=== PATIENT | male | born 1965 | race Hispanic/Latino ===

== ENCOUNTER 2021-03-15 08:56 | Outpatient (CLI) | payer OTHER, SELFPAY | END 2021-03-15 08:57 | disposition home or self-care (01) | LOC: ANHAUDIO 09:00 | PROVIDERS: Visit Provider Nurse Practitioner Family | DX: H90.3 Sensorineural hearing loss, bilateral (principal) | CPT/HCPCS: 92557; 92567 ==

== ENCOUNTER 2023-04-19 11:20 | Outpatient (CLI) | payer OTHER, SELFPAY ==
[2023-04-19 11:45] LABS: Basophils Absolute Auto 0.1 K/mm3 (0.0-0.1); Basophils Percent Auto 0.9 % (0.2-1.2); Eosinophils Percent Auto 0.4 % (0-4.4); Hematocrit 44.7 % (42.0-52.0); Hemoglobin 15.2 g/dL (14.0-18.0); Immature Granulocyte Absolute 0.06 K/mm3 (0.00-0.031); Immature Granulocyte Percent A 0.7 % (0-0.5); Immature Reticulocyte Fraction 7.3 % (3.0-15.9); Lymphocytes Absolute Auto 2.04 K/mm3 (0.9-3.2); Lymphocytes Percent Auto 22.8 % (18.3-44.2); Mean Corpuscular Hemoglobin 33.4 pg (26-34); Mean Corpuscular Volume 98.2 fl (80-100); Mean Platelet Volume 10.6 fl (7.4-10.4); Monocytes Absolute Auto 0.7 K/mm3 (0.1-0.6); Monocytes Percent Auto 7.4 % (2.6-8.5); Neutrophils Absolute Auto 6.1 K/mm3 (1.3-6.7); Neutrophils Percent Auto 67.8 % (45.5-73.1); Platelet Count Result 216 k/mm3 (150-375); Red Blood Count 4.55 M/mm3 (4.6-6.20); Red Cell Distribution Width 11.4 % (11.5-14.5); Reticulocyte Hemoglobin Conten 37.5 pg (28.2-35.7); Reticulocyte Percent 2.04 % (0.7-4.3); Reticulocytes Absolute 0.09 M/mm3 (0.02-0.1)
[2023-04-19 13:15] LABS: Alanine Aminotransferase 39 U/L (6-50); Albumin Level 4.4 g/dL (3.5-5.1); Alkaline Phosphatase 61 U/L (38-126); Anion Gap 7 mmol/L (8-16); Aspartate Amino Transferase 32 U/L (17-59); Bilirubin,Total 0.7 mg/dL (0.2-1.3); Blood Urea Nitrogen 15 mg/dL (9-20); Calcium 9.1 mg/dL (8.4-10.2); Carbon Dioxide 27 mmol/L (22-30); Chloride 104 mmol/L (98-107); Estimated Glomerular Filt Rate > 60; Glucose 96 mg/dL (65-110); Lactate Dehydrogenase 191 U/L (120-246); Potassium 4.7 mmol/L (3.4-5.0); Sodium 138 mmol/L (137-145)
[2023-04-19 14:21] LABS: Folic Acid 9.6 ng/mL (2.76->20)
[2023-04-19 16:27] LABS: Iron 179 ug/dL (49-181)
[2023-04-19 16:36] LABS: Percent Iron Saturation 61 % (20-50)
[2023-04-22 11:52] LABS: Methylmalonic Acid 99 nmol/L (87-318)
[2023-04-26 13:19] LABS: Soluble Transferrin Receptor 1.43 mg/L (0.76-1.76)
== END 2023-04-19 11:21 | disposition home or self-care (01) ==
LOC: ANHLAB 11:27
PROVIDERS: Nurse Practitioner Family; Visit Provider Internal Medicine Hematology & Oncology
DX: R71.8 Other abnormality of red blood cells (principal)
CPT/HCPCS: 36415; 80053; 82607; 82728; 82746; 83540; 83550; 83615; 83921; 84238; 84443; 85025; 85046

== ENCOUNTER 2023-11-15 08:03 | Outpatient (CLI) | payer OTHER, SELFPAY ==
[2023-11-15 08:24] LABS: Hematocrit 45.1 % (42.0-52.0); Hemoglobin 15.2 g/dL (14.0-18.0); Mean Corpuscular HGB Conc 33.7 g/dl (32-36); Mean Corpuscular Hemoglobin 33.6 pg (26-34); Mean Corpuscular Volume 99.8 fl (80-100); Platelet Count Result 209 k/mm3 (150-375); Red Blood Count 4.52 M/mm3 (4.6-6.20); Red Cell Distribution Width 11.4 % (11.5-14.5); White Blood Count 8.3 K/mm3 (4.5-10.0)
[2023-11-15 08:25] LABS: Basophils Absolute Auto 0.1 K/mm3 (0.0-0.1); Basophils Percent Auto 0.6 % (0.2-1.2); Eosinophils Percent Auto 0.5 % (0-4.4); Immature Granulocyte Absolute 0.06 K/mm3 (0.00-0.031); Immature Granulocyte Percent A 0.7 % (0-0.5); Lymphocytes Absolute Auto 1.97 K/mm3 (0.9-3.2); Lymphocytes Percent Auto 23.7 % (18.3-44.2); Mean Platelet Volume 10.4 fl (7.4-10.4); Monocytes Absolute Auto 0.6 K/mm3 (0.1-0.6); Monocytes Percent Auto 6.9 % (2.6-8.5); Neutrophils Absolute Auto 5.6 K/mm3 (1.3-6.7); Neutrophils Percent Auto 67.6 % (45.5-73.1)
[2023-11-15 09:15] LABS: Iron 95 ug/dL (49-181)
[2023-11-15 09:25] LABS: Percent Iron Saturation 32 % (20-50)
[2023-11-15 10:23] LABS: Folic Acid 17.7 ng/mL (2.76->20)
== END 2023-11-15 08:04 | disposition home or self-care (01) ==
LOC: ANHLAB 08:04
PROVIDERS: Nurse Practitioner Family; Visit Provider Internal Medicine Hematology & Oncology
DX: D51.9 Vitamin B12 deficiency anemia, unspecified (principal); E03.9 Hypothyroidism, unspecified
CPT/HCPCS: 36415; 82607; 82728; 82746; 83540; 83550; 84443; 85025

== ENCOUNTER 2024-11-21 08:16 | Outpatient (CLI) | payer OTHER, SELFPAY ==
--- OUTSIDE RECORDS SUMMARY | 2022-04-18 14:25 | XMS_ITS | Encounter Summary ---
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) Procedures Pulmonary Function Test -[facility]- [facility]; Spirometry, Oxygen Assessment Titration Melchor Bajwa MD [address] [place] [address] Phone: tel: fax: Referral ID Status Reason Start Date Expiration Date Visits Re quested Visits Authorized [id number] Closed 09/20/2021 10/20/2022 1 1 D INSTALLATION TECHNICIAN Reason for Visit * (Routine) - Closed Specialty Diagnoses / Procedures Referred By Contac t Referred To Contact Diagnoses 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) [...] on file Legal Sex Male 11:40 AM FIELD INSTALLATION TECHNICIAN Gender Identity Not on file Sexual Orientation Not on file documented as of this encounter Functional Status documented as of this encounter Plan of Treatment Not on file documented as of this encounter Procedures Procedure Name Priority Date/Time Associated Diagnosis Comments PULMONARY FUNCTION TEST (PFT) Routine 04/18/2022 1:51 PM FIELD INSTALLATION TECHNICIAN 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 FVC %PRE PRED 83 % [facility] FEV1 PRE 2.[address] [facility] FEV1 %PRE PRED 84 % [facility] FEV1/FVC PRE 80.9 % [facility] FIO2 % 21.00 % [facility] PaO2 68.[address] [facility] PaCO2 38.[address] [facility] pH 7.[address] [facility] A-aDO2 POC 34.[address] [facility] METHGB % 1.2 % [facility] COHb POC 1.5 % [facility] HCO3 25.8 mEq/L [facility] Anatomical Region Laterality Modality PFT 04/18/2022 1:28 PM FIELD INSTALLATION TECHNICIAN Narrative 04/25/2022 8:15 AM FIELD INSTALLATION TECHNICIAN Table formatting from the original result was not included. [facility] Division of Pulmonary & Critical Care Medicine [address] [place] [address]; [place] [address]; [place] [address]; [phone] Pulmonary Function Laboratory Pulmonary Stress Test Simple/Oxygen [...] Work [distance (m) x body wt (kg)]: 57527 kg.m (normal >60,000kg.m) Oxygen required to maintain [...] with the written final report. 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
--- OUTSIDE RECORDS SUMMARY | 2023-04-17 13:42 | XMS_ITS | Encounter Summary ---
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) Procedures Pulmonary Function Test -[facility]FT [facility]- [facility]; Spirometry, Oxygen Assessment Titration Melchor Bajwa MD [address] [place] [address] Phone: tel: fax: Referral ID Status Reason Start Date Expiration Date Visits Re quested Visits Authorized [id number] Closed 04/18/2022 05/18/2023 1 1 ISTRY PROFESSOR Reason for Visit * Procedure (Routine) - Closed Specialty Diagnoses / Procedures Referred By Contandrea t Referred To Contact Diagnoses 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) Procedures Pulmonary Function Test -[facility]- [facility]; Spirometry, Oxygen Assessment Titration Melchor Bajwa MD [address] [place] [address] Phone: tel: fax: Referral ID Status Reason Start Date Expiration Date Visits Re quested Visits Authorized [id number] Closed 04/18/2022 05/18/2023 1 1 Encounter Details Date Type Department Care Team (Latest Contact Info) Description 04/17/2023 12:42 PM DENTISTRY PROFESSOR Hospital Encounter [facility] Medicine PFT Lab 10 [facility] Office Building [address] [place] [address] 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 Compared [...] and %HbO2 is age dependent. However, the [facility] Pulmonary Function Laboratory defines hypoxemia as a PO2 <55 or a %HbO2 <89. Narrative 04/17/2023 6:10 PM DENTISTRY PROFESSOR Table formatting from the original result was not included. [facility] Division of Pulmonary & Critical Care Medicine [address] [place] [address]; [place] [address]; [place] [address]; [phone] Pulmonary Function Laboratory Pulmonary Stress Test Simple/Oxygen [...] Work [distance (m) x body wt (kg)]: 55345 kg.m (normal >60,000kg.m) Oxygen required to maintain [...] with no significant change of FEV1. Holden Pino M.D. By signing this report, the attending pulmonary physician certifies that he/she has personally reviewed and interpreted the graphic and numerical data associated with this pulmonary function study and has reviewed and /or edited a preliminary draft report and agrees with the written final report. PFT performed at:->[facility] Adult PFT Lab- [facility] Procedure:->Spirometry Procedure:->Oxygen Assessment Titration Pulmonary Function Test [...] (HCC) documented in this encounter Care Teams Slag Production Worker Relationship Specialty Start Date End Date Lida Mckeon MD [address] [place] [id number] PCP - General Internal Medicine 04/18/22 Fely Johnson, RN Registered Nurse Pulmonary Disease 04/18/22 documented as of this encounter
--- OUTSIDE RECORDS SUMMARY | 2024-11-21 08:22 | XMS_ITS | Encounter Summary ---
Author Organization [facility] Healthcare Address [address] [place] [address] Care Team Providers Care Health Club Manager Name Role Phone Oscar Buenrostro MD Primary Care Provider Lida Mckeon MD Primary Care Provide r Fely Johnson RN Unavailable [facility] Encounter Details Date Type Department Care Team (Late st Contact Info) Description 01/27/2021 Telephone [facility] [address] [place] [address] Carolee Reynolds RT Social History Tobacco Use Types Packs/Day Years Used Date Smoking Tobacco: Former Smokeless Tobacco: Never Sex and Gender Information Value Date Recorded Sex Assigned at Not on file Legal Sex Male 11:40 AM MANAGEMENT ANALYST Gender Identity Not on file Sexual Orientation Not on file documented as of this encounter Plan of Treatment Not on file documented as of this encounter Visit Diagnoses Not on filedocumented in this encounter Care Teams Health Club Manager Relationship Specialty Start Date End Date Oscar Buenrostro MD [address] [place] [address] PCP - General 05/09/16 04/17/22 Lida Mckeon MD [address] [facility] [address] [place] [address] PCP - General Internal Medicine 04/18/22 Fely Johnson, RN Registered Nurse Pulmonary Disease 04/18/22 documented as of this encounter
--- OUTSIDE RECORDS SUMMARY | 2024-11-21 08:22 | XMS_ITS | Clinical Summary ---
Author Organization [facility] Shivamarystephen Eduardo Address [address] [place] [address] Care Team Providers Care Core Finisher Name Role Phone Hany Mckeon MD Primary Care Provider Allergies No known active allergies Medications albuterol sulfate HFA 90 mcg/actuation aerosol inhaler Take 2 Puffs by inhalation. 3 Active budesonide-form oteroL (SYMBICORT) 160-4.5 mcg/actuation HFA Aerosol Inhaler Take 2 Puffs by inhalation 2 times daily. 3 Active escitalopram oxalate (LEXAPRO) 10 mg tablet Take 10 mg by mouth daily at bedtime. Active fluticasone propionate (FLONASE) 50 mcg/spray [place], Suspension nasal inhaler Administer 2 Sprays in each nostril daily. 3 Active levothyroxine 50 mcg tablet Take 50 mcg by mouth daily. 3 Active rosuvastatin (CRESTOR) 10 mg tablet Take 10 mg by mouth daily. Active multivitamin (DAILY-TAINA) tablet Take 1 Tablet by mouth daily. Active Active Problems Problem Noted Date Diagnosed Date Elevated MCV 04/19/2023 Encounters Date Type Department Care Team Description 11/20/2024 Orders Only [facility] Oncology and Hematology - [place] [address] [place] [address] Shaan Barnett MD Elevated MCV (Primary Dx) 09/16/2024 External Device Data STL ABSTRACTION Provider, Abstract from Last 3 Months Family History Medical History Relation Name Comments Diabetes Brother No Known Problems Child Diabetes Father No Known Problems Mother No Known Problems Sister Relation Name Status Comments Brother Alive Child Alive Father Mother Alive Sister Alive Social History Tobacco Use Types Packs/Day Years Used Date Smoking Tobacco: Former Cigarettes 0.5 23 0 03/26/1988 - 03/26/2011 Smokeless Tobacco: Never Tobacco Cessation:Counseling Given: Not Answered Alcohol Use Standard Drinks/Week Comments Yes 0 (1 standard drink = 0.6 oz pur e alcohol) Socially Sex and Gender Information Value Date Recorded Sex Assigned at Not on file Legal Sex Male 11:51 AM CORPORATION OFFICER Gender Identity Not on file Sexual Orientation Not on file Last Filed Vital Signs Vital Sign Reading Time Taken Comments Blood Pressure 122/83 11/16/2023 9:58 AM CDT Pulse 87 11/16/2023 9:58 AM CDT Temperature 36.6 C (97.9 F) 11/16/2023 9:58 AM CDT Respiratory Rate 15 11/16/2023 9:58 AM CDT Oxygen Saturation 96% 11/16/2023 9:58 AM CDT Inhaled Oxygen Concentration - - Weight 76.9 kg (169 lb 9.6 oz) 11/16/2023 9:58 A M CDT Height 167.6 cm (5' 6) 04/19/2023 10:30 AM CORPORATION OFFICER Body Mass Index 27.37 04/19/2023 10:30 AM CORPORATION OFFICER Plan of Treatment Upcoming Encounters Date Type Department Care Team (Late st Contact Info) Description 11/21/2024 8:45 AM CDT Office Visit [facility] Oncology and Hematology - [place] [address] [facility] [place] [facility] [address] [place] [address] Shaan Barnett MD [address] [facility] [address] [place] [address] Health Maintenance Due Date Last Done Comments DTAP/TDAP/TD VACCINES (1 - Tdap) 08/07/1986 HEPATITIS B VACCINES (1 of 3 - 19+ 3-dose series) 07/24 COLORECTAL SCREENING 08/07/2012 Colorectal Cancer Screening 08/07/2012 FIT-DNA Q 3 years 08/07/2012 FIT/FOBT Q 1 year 08/07/2012 Flex Sig/CT Colonography Q 5 years 08/07/2012 ZOSTER VACCINE (1 of 2) 08/07/2017 INFLUENZA VACCINE (#1) [address] [place] [address] MEDICAID Care Teams Core Finisher Relationship Specialty Start Date End Date Hany Mckeon MD PCP - General Internal Medicine 04/19/23
--- OUTSIDE RECORDS SUMMARY | 2024-11-21 08:22 | XMS_ITS | Encounter Summary ---
Author Organization [facility] [place] [facility] Address [address] [place] [address] Care Team Providers Care Account Services Representative Name Role Phone Hany Mckeon MD Primary Care Provider Encounter Details Date Type Department Care Team (Late Contact Info) Description 11/20/2024 Orders Only [facility] Oncology and Hematology [facility] [address] [place] [address] Shaan Barnett MD [facility] [address] [place] [phone] Elevated MCV (Primary Dx) Social History Tobacco Use Types Packs/Day Years Used Date Smoking Tobacco: Former Cigarettes 0.5 23 0 03/26/1988 - 03/26/2011 Smokeless Tobacco: Never Alcohol Use Standard Drinks/Week Comments Yes 0 (1 standard drink = 0.6 oz pur e alcohol) Socially Sex and Gender Information Value Date Recorded Sex Assigned at Not on file 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 Gender Identity Not on file Sexual Orientation Not on file documented as of this encounter Plan of Treatment Upcoming Encounters Date Type Department Care Team (Late Contact Info) Description 11/21/2024 8:45 AM CDT Office Visit [facility] Oncology and Hematology - [place] [address] [place] [address] Shaan Barnett MD [address] [place] [address] Scheduled Orders Name Type Priority Associated Diagnoses Orde r Schedule BASIC METABOLIC PANEL Lab Routine Elevated MCV Expected: 11/20/2024, Expires: 11/20/2025 CBC WITH DIFFERENTIAL Lab Routine Elevated MCV Expected: 11/20/2024, Expires: 11/20/2025 documented as of this encounter Visit Diagnoses Diagnosis Elevated MCV- Primary Other abnormality of red blood cells documented in this encounter Care Teams Account Services Representative Relationship Specialty Start Date End Date Hany Mckeon MD PCP - General Internal Medicine 04/19/23 documented as of this encounter
--- OUTSIDE RECORDS SUMMARY | 2024-11-21 08:22 | XMS_ITS | Clinical Summary ---
Author Organization [facility] Address [address] [facility] [place] [address] Care Team Providers Care Cafe Attendant Name Role Phone Hany Mckeon MD Primary Care Provider Allergies No known active allergies Medications acetaminophen Extra Strength (TYLENOL) 500 MG Tablet Take 500 mg by mouth every 8 hours. 5 Active Symbicort 160-4.5 MCG/ACT Aerosol INHALE 2 PUFFS BY MOUTH TWICE DAILY. RINSE MOUTH WITH WATER AFTER USE. DO NOT SWALLOW 5 Active rosuvastatin (CRESTOR) 10 MG Tablet Take 10 mg by mouth daily. 5 Active levothyroxine (SYNTHROID) 50 MCG Tablet Take 50 mcg by mouth daily. 5 Active Lancets (OneTouch Delica Plus [id number]) Misc test twice daily 5 Active ibuprofen (MOTRIN) 800 MG Tablet Take 800 mg by mouth every 8 hours as needed for Mild or more severe pain. 5 Active OneTouch Ultra Strip use to test twice daily 5 Active famotidine (PEPCID) 20 MG Tablet Take 20 mg by mouth. 5 Active escitalopram (LEXAPRO) 10 MG Tablet 10 mg. 5 Active albuterol 108 (90 Base) MCG/ACT Aerosol Solution INHALE 2 PUFFS BY MOUTH EVERY 6 HOURS NEEDED FOR WHEEZING OR SHORTNESS OF BREATH 5 Active chlorhexidine (PERIDEX) 0.12 % Solution RINSE AND SPIT 15 ML BY MOUTH FOR 30 SECONDS EVERY 12 HOURS Active cefdinir (OMNICEF) 300 MG Capsule Take 300 mg by mouth 2 times daily. Active cetirizine (ZyrTEC) 10 MG Tablet Take 10 mg by mouth daily. Active naproxen (NAPROSYN) 500 MG Tablet Take 500 mg by mouth 2 times daily (with meals). Active meloxicam (MOBIC) 15 MG Tablet Take 15 mg by mouth daily. Active rOPINIRole (REQUIP) 0.5 MG Tablet Take 0.5 mg by mouth nightly. Active traZODone (DESYREL) 50 MG Tablet Take 50 mg by mouth nightly. Active HYDROcodone-enzo taminophen (NORCO) 7.5-325 MG Tablet Take 1 Tablet by mouth every 6 hours as needed. Active clarithromycin (BIAXIN) 500 MG Tablet Take 500 mg by mouth 2 times daily. Active ferrous sulfate (FeroSul) 325 (65 Fe) MG Tablet Take 325 mg by mouth daily. Active metoclopramide (REGLAN) 10 MG Tablet Take 10 mg by mouth 4 times daily. Active LORazepam (ATIVAN) 1 MG Tablet Take 1 mg by mouth every 6 hours as needed. Active itraconazole (SPORANOX) 100 MG Capsule Take 200 mg by mouth daily. Active hydrOXYzine (ATARAX) 25 MG Tablet Take 25 mg by mouth every 6 hours as needed. Active Omeprazole 20 MG Tablet Delayed Response Take by mouth. Activ e Active Problems Problem Noted Date Diagnosed Date Primary hypertension 07/18/2024 Hypothyroidism 06/12/2024 Hyperlipidemia 06/12/2024 Generalized anxiety disorder 06/12/2024 RAVEN (obstructive sleep apnea) 06/12/2024 Acute sinusitis 06/12/2024 04/06/2023 Coronary arteriosclerosis 06/12/20242022 Upper respiratory infection 06/12/2024 08/0 03/2022 Allergic rhinitis 06/12/2024 11/02/2022 COPD (chronic obstructive pulmonary disease) 11/02/2022 Infection of tooth 06/12/2024 03/21/2024 Tooth ache 06/12/2024 10/03/2022 GERD without esophagitis 06/12/2024 023 Granulomatous disorder of th e skin and subcutaneous tissue, unspecified 06/12/2024 01/15/2019 Foot callus 06/12/2024 Ankle pain, left 06/12/2024 06/10/2022 Porokeratosis 06/12/2024 06/05/2022 Headache 06/12/2024 05/13/2024 Dyspnea on exertion 06/12/2024 07/16/2018 Macrocytosis 06/12/2024 11/02/2022 Abnormal red blood cell count 06/12/2024 Hyperglycemia 06/12/2024 12/13/2021 Peroneal tendinitis 06/12/2024 07/10/2022 Pterygium eye, bilateral 06/12/2024 023 Pain in joint of right shoulder 06/12/2024 05/08/2023 Elevated liver enzymes 06/12/2024 Social History Tobacco Use Types Packs/Day Years Used Date Smoking Tobacco: Never Assessed Sex and Gender Information Value Date Recorded Sex Assigned at Not on file Legal Sex Male 4:41 PM CDT Gender Identity Not on file Sexual Orientation Not on file Last Filed Vital Signs Vital Sign Reading Time Taken Comments Blood Pressure 124/90 07/18/2024 11:02 AM CDT Pulse 98 07/18/2024 11:02 AM CDT Temperature 36.6 C (97.8 F) 07/18/2024 11:02 AM CDT Respiratory Rate - - Oxygen Saturation 98% 07/18/2024 11:02 AM CDT Inhaled Oxygen Concentration - - Weight 77.6 kg (171 lb) 07/18/2024 11:02 AM CDT Height 177.8 cm (5' 10) 07/18/2024 11:02 AM CDT Body Mass Index 24.54 07/18/2024 11:02 AM CDT Plan of Treatment Upcoming Encounters Date Type Department Care Team (Late st Contact Info) Description 07/14/2025 8:30 AM CDT Office Visit [facility] - Cardiology - Greg [address] [place] [phone] Cari Cole APRN, THERAPY TECHNICIAN [address] [place] [phone] Health Maintenance Due Date Last Done Comments Hepatitis C Virus (HCV) Screening 1965 TdaP Immunization 1965 Hepatitis B Immunization (1 of 3 - 19+ 3-dose series) 08/07/1986 Pneumococcal Immunization (50+ years) (1 of 2 - PCV) 08/07/1986 Cologuard 08/07/2012 Colonoscopy 08/07/2012 Colorectal Cancer Screening 08/07/2012 Immunochemical Fecal Occult Blood 08/07/2012 Zoster Immunization (1 of 2) 08/07/2017 PSA Discussion 08/07/2022 Influenza Immunization (#1) 2024 11/0 06/2023, 01/08/2023, 01/10/2022, Additional history exists Respiratory Syncytial Virus (RSV) Immunization (Adult) (1 - 1-dose 75+ series) 08/07/2042 SARS-COV-2 Immunization Completed 01/28/20 24, 07/27/2020, 06/29/2020 Human Papillomavirus (HPV) Immunization Aged Out No longer eligible based on patient's age to complete this topic Meningococcal Immunization (ACWY) Aged Out No longer eligible based on patient's age to complete this topic Rotavirus Immunization Aged Out No lo nger eligible based on patient's age to complete this topic Insurance MEDICAID [employer] Care Teams Cafe Attendant Relationship Specialty Start Date End Date Hany Mckeon MD [address] [place] [address] PCP - General Internal Medicine 06/25/24
--- OUTSIDE RECORDS SUMMARY | 2024-11-21 08:22 | XMS_ITS ---
Author Organization [facility] Address [address] [place] [address] Care Team Providers Care Major Gifts Director Name Role Phone Hany Mckeon MD Primary Care Provider [place] Chronic Condition Monitoring Status:Enrolled (Active) Start date:09/12/2024 Enrollment date:09/12/2024 Related social drivers of health:Intimate Partner Violence, Social Connections, Alcohol Use, Tobacco Use, Financial Resource Strain,Depression, Stress, Physical Activity, Food Insecurity, Transportation Needs, Housing Stability, Utilities Continued Care and Services Coordination
--- OUTSIDE RECORDS SUMMARY | 2024-11-21 08:22 | XMS_ITS | Encounter Summary ---
Author Organization [facility] Address [address] [place] [address] Phone Care Team Providers Care Protective Signal Superintendent Name Role Phone Oscar Buenrostro MD Primary Care Provider Lida Mckeon MD Primary Care Provide r Fely Johnson RN Unavailable Unavailabl e Encounter Details Date Type Department Care Team (Latest Contact Info) Description 05/02/2019 Orders Only [facility] Scanning, Provider Social History Tobacco Use Types Packs/Day Years Used Date Smoking Tobacco: Never Assessed Sex and Gender Information Value Date Recorded Sex Assigned at Not on file 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 Gender Identity Not on file Sexual Orientation Not on file documented as of this encounter Plan of Treatment Not on file documented as of this encounter Procedures Procedure Name Priority Date/Time Associated Diagnosis Comments PULMONARY - RESULT SCAN 05/02/2019 documented in this encounter Results * PULMONARY - RESULT SCAN (05/02/2019) Anatomical Region Laterality Modality Other us Provider Scanning Final Result documented in this encounter Visit Diagnoses Not on filedocumented in this encounter Care Teams Protective Signal Superintendent Relationship Specialty Start Date End Date Oscar Buenrostro MD [address] [place] [address] PCP - General 05/09/16 04/17/22 Lida Mckeon MD [address] [place] [address] PCP - General Internal Medicine 04/18/22 Fely Johnson, RN Registered Nurse Pulmonary Disease 04/18/22 documented as of this encounter
--- OUTSIDE RECORDS SUMMARY | 2024-11-21 08:22 | XMS_ITS | Clinical Summary ---
Author Organization [facility] Address [address] [place] [address] Care Team Providers Care Banquet Coordinator Name Role Phone Lida Mckeon MD Primary Care Provide r Fely Johnson RN Unavailable Unavailabl e Allergies Active Allergy Reactions Criticality Noted Date Comments Hydromorphone Other (See comments) Low Reaction: OTHER, Reaction: Other Medications ALPRAZolam (XANAX) 0.5 mg tablet as needed Active rosuvastatin (CRESTOR) 10 mg tablet rosuvastatin 10 mg tablet Active OneTouch Ultra Test strip USE TO TEST BLOOD SUGAR ONCE DAILY 2 Active OneTouch Ultra2 Meter misc USE TO CHECK BLOOD SUGAR ONCE DAILY 2 Active OneTouch Delica Plus Lancet 33 gauge misc USE TO TEST BLOOD SUGAR ONCE DAILY 2 Active fluticasone propionate (FLONASE) 50 mcg/actuation nasal spray Administer 2 sprays into each nostril daily 16 g 5 3 Active FeroSuL 325 mg (65 mg iron) tablet Take 1 tablet (325 mg total) by mouth daily 2 Active omeprazole (PriLOSEC) 20 mg capsule Take by mouth daily before breakfast 2 Active azelastine (ASTELIN) 137 mcg (0.1 %) nasal spray Administer 1 spray into each nostril 2 (two) times a day Use in each nostril as directed 30 mL 5 3 Active Additional Information Patient not taking.Reported on 04/23/2024 escitalopram (LEXAPRO) 10 mg tablet Take 1 tablet (10 mg total) by mouth nightly at bedtime Active ascorbic acid with asad hips 500 mg tablet Take 1 tablet/chew tab (500 mg total) by mouth daily 4 Active levothyroxine (SYNTHROID) 50 mcg tablet Take 1 tablet (50 mcg total) by mouth daily 3 Active itraconazole (SPORANOX) 100 mg capsule itraconazole 100 mg capsule Take 2 capsules twice a day by oral route as directed for 14 days. Active albuterol HFA (ProAir HFA) 90 mcg/actuation inhaler Inhale 2 puffs every 6 (six) hours as needed for wheezing or shortness of breath 8.5 g 5 4 Active multivitamin tablet Take 1 tablet by mouth daily Active ibuprofen (ADVIL,MOTRIN) 800 mg tablet Take 1 tablet (800 mg total) by mouth every 12 (twelve) hours for 10 days 5 Active budesonide-form oteroL (SYMBICORT) 160-4.5 mcg/actuation inhaler Inhale 2 puffs 2 (two) times a day Rinse mouth with water after use. Do not swallow. 1 each 5 5 Active famotidine (PEPCID) 20 mg tablet Take 1 tablet (20 mg total) by mouth 2 (two) times a day for 30 days, THEN 1 tablet (20 mg total) daily. 90 tablet 5 5 Active Active Problems Problem Noted Date Diagnosed Date Dyspnea on exertion 10/16/2022 Granulomatous disease Respiratory bronchiolitis as sociated interstitial lung disease Surgical History Surgery Date Site/Laterality Comments ABSCESS CATHETER INJECTION 05/01/2016 N/A ABSCESS CATHETER INJECTION 04/17/2016 N/A ABSCESS TUBE EXCHANGE 04/17/2016 N/A CT GUIDED DRAINAGE PERITONEA L OR RETROPERITONEAL FLUID COLLECTION 03/28/2016 N/A Family History Medical History Relation Name Comments Diabetes Father Relation Name Status Comments Father Mother Alive Social History Tobacco Use Types Packs/Day Years Used Date Smoking Tobacco: Former Smokeless Tobacco: Never Tobacco Cessation:Counseling Given: Not Answered AUDIT-C Answer Date Recorded Frequency of Alcohol Consumption Not on file 04/23/2024 Q2: How many drinks containi ng alcohol do you have on a typical day when you are drinking? 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 Gender Identity Not on file Sexual Orientation Not on file Obstetrics History Last Filed Vital Signs Vital Sign Reading Time Taken Comments Blood Pressure 107/69 04/23/2024 7:42 AM ASBESTOS HANDLER Pulse 73 04/23/2024 7:42 AM ASBESTOS HANDLER Temperature 36.7 C (98.1 F) 04/23/2024 7:42 AM ASBESTOS HANDLER Respiratory Rate 20 04/17/2023 1:11 PM ASBESTOS HANDLER Oxygen Saturation 99% 04/23/2024 7:42 AM ASBESTOS HANDLER Inhaled Oxygen Concentration - - Weight 77.6 kg (171 lb) 04/23/2024 7:42 AM ASBESTOS HANDLER Height 170.9 cm (5' 7.3) 04/23/2024 7:42 AM ASBESTOS HANDLER Body Mass Index 26.54 04/23/2024 7:42 AM ASBESTOS HANDLER Plan of Treatment Health Maintenance Due Date Last Done Comments Depression Screening 1965 Hepatitis C Screening 1965 Prostate Cancer Screening-PSA 1965 DTaP/Tdap/Td Vaccine (1 - Tdap) 08/07/1978 Hepatitis B Screening 08/07/1985 Regular Well Visit/Exam 18-64 08/07/1985 Pneumococcal vaccine <65 (1 of 2 - PCV) 08/07/1986 Zoster Vaccine (1 of 2) 08/07/2017 Influenza Vaccine (#1) 2024 01/05/2020, 2015 Colon Cancer Screening-Colonoscopy 05/09/20262016 Colon Cancer Screening-CT Colonography Discontinued Colon Cancer Screening-DNA Stool Discontinued 05/09/19 17 Colon Cancer Screening-FIT Discontinued 05/09/2016 Colon Cancer Screening-Sigmoidoscopy Discontinued 04/26 Procedures Procedure Name Priority Date/Time Associated Diagnosis Comments COLONOSCOPY REPORT 05/09/2016 from Last 3 Months or Most Recently Relevant to Health Maintenance Results * COLONOSCOPY REPORT (05/09/2016) Anatomical Region Laterality Modality Other Narrative 05/09/2016 Ordered by an unspecified provider. us Historical Provider GI PROCEDURE ORDERABLES F inal Result from Last 3 Months or Most Recently Relevant to Health Maintenance Insurance [facility]PPO Address: [address] [address] [place] [address] [facility] Care Teams Banquet Coordinator Relationship Specialty Start Date End Date Lida Mckeon MD [address] [address] PCP - General Internal Medicine 04/18/22 Fely Johnson, RN Registered Nurse Pulmonary Disease 04/18/22
[2024-11-21 08:27] LABS: Hematocrit 45.5 % (42.0-52.0); Hemoglobin 15.6 g/dL (14.0-18.0); Immature Granulocyte Percent A 0.5 % (0-0.5); Lymphocytes Absolute Auto 1.83 K/mm3 (0.9-3.2); Mean Corpuscular HGB Conc 34.3 g/dl (32-36); Mean Corpuscular Hemoglobin 33.8 pg (26-34); Mean Corpuscular Volume 98.5 fl (80-100); Nucleated Red Blood Cells Absolute Auto 0.000 K/mm3 (0.0-0.012); Nucleated Red Blood Cells Perc 0.0 % (0.0-0.2); Platelet Count Result 198 k/mm3 (150-375); Red Blood Count 4.62 M/mm3 (4.6-6.20); White Blood Count 8.5 K/mm3 (4.5-10.0)
[2024-11-21 08:30] LABS: Blood Urea Nitrogen 15 mg/dL (8-26); Carbon Dioxide 27 mmol/L (22-30); Chloride 103 mmol/L (98-109); Estimated Glomerular Filt Rate > 60; Glucose 119 mg/dL (70-105); Ionized Calcium (POC) 1.19 mmol/L (1.11-1.31); Potassium 4.2 mmol/L (3.5-4.9); Sodium 139 mmol/L (138-146)
== END 2024-11-21 08:17 | disposition home or self-care (01) ==
LOC: ANHLAB 08:17
PROVIDERS: PCP Internal Medicine; Visit Provider Internal Medicine Hematology & Oncology
DX: R71.8 Other abnormality of red blood cells (principal)
CPT/HCPCS: 36415; 80047; 85025

== ENCOUNTER 2025-03-23 08:59 | Outpatient (CLI) | payer MEDICARE, MEDICAID, SELFPAY ==
--- OUTSIDE RECORDS SUMMARY | 2022-04-18 13:25 | XMS_ITS | Encounter Summary ---
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) Procedures Pulmonary Function Test -[facility]- [facility]; Spirometry, Oxygen Assessment Titration Melchor Bajwa MD [address] [place] [address] Phone: tel: fax: Referral ID Status Reason Start Date Expiration Date Visits Re quested Visits Authorized [id number] Closed 09/20/2021 10/20/2022 1 1 L CRAFT OPERATOR Reason for Visit * (Routine) - Closed Specialty Diagnoses / Procedures Referred By Contac t Referred To Contact Diagnoses 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) Procedures Pulmonary Function Test -[facility]- [facility]; Spirometry, Oxygen Assessment Titration Melchor Bajwa MD [address] [place] [address] Phone: tel: fax: Referral ID Status Reason Start Date Expiration Date Visits Re quested Visits Authorized [id number] Closed 09/20/2021 10/20/2022 1 1 Encounter Details Date Type Department Care Team (Latest Contact Info) Description 04/18/2022 1:25 PM SMALL CRAFT OPERATOR Hospital Encounter [facility] Medicine PFT Lab 10 [facility] Medical Office Building [address] [place] [address] 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) documented in this encounter Results * Pulmonary Function Test - (04/18/2022 1:51 PM SMALL CRAFT OPERATOR) FVC PRE 3.41 L [facility] FVC %PRE PRED 83 % [facility] FEV1 PRE 2.76 L [facility] FEV1 %PRE PRED 84 % [facility] FEV1/FVC PRE 80.9 % [facility] FIO2 % 21.00 % [facility] PaO2 68.0 mmHg [facility] PaCO2 38.0 mmHg [facility] pH 7.44 [facility] A-aDO2 POC 34.0 mmHg [facility] METHGB % 1.2 % [facility] COHb POC 1.5 % [facility] HCO3 25.8 mEq/L [facility] Anatomical Region Laterality Modality PFT 04/18/2022 1:28 PM SMALL CRAFT OPERATOR Narrative 04/25/2022 8:15 AM SMALL CRAFT OPERATOR Table formatting from the original result was not included. [facility] Division of Pulmonary & Critical Care Medicine [address] [place] [address]; [place] [address]; [place] [address]; [phone] Pulmonary Function Laboratory Pulmonary Stress Test Simple/Oxygen Assessment Patient: Vishal Curry Date: No visit date found. : 1965 Ht:67.5 IN Wt: 183 LBS Time (min) Distance (ft)/ Villaseñor O2 L/M SpO2 HR Alethea* BP FEV1 % Pred Rest: RA 98 83 3 117/80 2.76 84 % Walk/Bike: 1 RA 98 103 3 2 RA 99 101 3/4 3 RA 99 102 4 4 RA 97 107 4 5 RA 98 104 4 6 min 0 sec RA 99 102 5 Recovery: 1 RA 97 90 3 118/87 2.83 86% 3 RA 98 84 2 *Alethea rate of perceived exertion (1-10 dyspnea scale) Eleazar, CHEST 2003; 123:1408 Walk Test Summary: Six Minute Walk Distance: 1370 ft Six-minute Walk Work [distance (m) x body wt (kg)]: 94904 kg.m (normal >60,000kg.m) Oxygen required to maintain SpO2 greater than 90% during six minutes of walkin L/M Comments: O2A Interpretation: Breathing room air, SpO2 is normal at rest and during exercise sufficient to increase pulse from 83 to 102 b/min, SpO2 is stable. On this basis, SpO2 is adequate at rest breathing room air and while walking breathing room air. This level of exercise is associated with no significant change of FEV1. Cassie Villareal M.D. By signing this report, the attending pulmonary physician certifies that he/she has personally reviewed and interpreted the graphic and numerical data associated with this pulmonary function study and has reviewed and /or edited a preliminary draft report and agrees with the written final report. 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
--- OUTSIDE RECORDS SUMMARY | 2023-04-17 12:42 | XMS_ITS | Encounter Summary ---
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) Procedures Pulmonary Function Test -[facility]FT [facility]- [facility]; Spirometry, Oxygen Assessment Titration Melchor Bajwa MD [address] [place] [address] Phone: tel: fax: Referral ID Status Reason Start Date Expiration Date Visits Re quested Visits Authorized [id number] Closed 04/18/2022 05/18/2023 1 1 ATRY PROFESSOR Reason for Visit * Procedure (Routine) - Closed Specialty Diagnoses / Procedures Referred By Contandrea t Referred To Contact Diagnoses 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) Procedures Pulmonary Function Test -[facility]FT [facility]- [facility]; Spirometry, Oxygen Assessment Titration Melchor Bawja MD [address] [place] [address] Phone: tel: fax: Referral ID Status Reason Start Date Expiration Date Visits Re quested Visits Authorized [id number] Closed 04/18/2022 05/18/2023 1 1 Encounter Details Date Type Department Care Team (Latest Contact Info) Description 04/17/2023 12:42 PM PODIATRY PROFESSOR Hospital Encounter [facility] Medicine PFT Lab 10 [facility] Office Building [address] [place] [address] 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) [...] on file Legal Sex Male 11:40 AM PODIATRY PROFESSOR Gender Identity Not on file Sexual Orientation Not on file documented as of this encounter Plan of Treatment Not on file documented as of this encounter Procedures Procedure Name Priority Date/Time Associated Diagnosis Comments PULMONARY FUNCTION TEST (PFT) Routine 04/17/2023 1:11 PM PODIATRY PROFESSOR 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 Compared with study dated 10/16/32 , there has been no significant interval change. The attending pulmonary physician certifies a physician presence in the [facility] during the administration of aerosolized bronchodilator. The attending pulmonary physician certifies that he/she has reviewed and interpreted the graphic and numerical data of this pulmonary function study and agrees with the written final report. The lower limit of normal for PO2 and %HbO2 is age dependent. However, the [facility] Pulmonary Function Laboratory defines hypoxemia as a PO2 <55 or a %HbO2 <89. Narrative 04/17/2023 6:10 PM PODIATRY PROFESSOR Table formatting from the original result was not included. [facility] Division of Pulmonary & Critical Care Medicine [address] [place] [address]; [place] [address]; [place] [address]; [phone] Pulmonary Function Laboratory Pulmonary Stress Test Simple/Oxygen Assessment Patient: Vishal Curry Date: 04/17/2023 : 1965 Ht: 66 IN Wt: 175 LBS Time (min) Distance (ft)/ Villaseñor O2 L/M SpO2 HR Alethea* BP FEV1 % Pred Rest: RA 97 80 4 103/76 2.79 86 % Walk/Bike: 1 RA 100 92 4 2 RA 99 97 5 3 RA 100 97 5 4 RA 100 99 6 5 RA 100 99 7 6 min 0 sec RA 100 99 9 Recovery: 1 RA 100 88 9 112/82 2.69 83% 3 RA 100 87 7 *Alethea rate of perceived exertion (1-10 dyspnea scale) Eleazar, CHEST 2003; 123:1408 Walk Test Summary: Six Minute Walk Distance: 1530 ft Six-minute Walk Work [distance (m) x body wt (kg)]: 28938 kg.m (normal >60,000kg.m) Oxygen required to maintain SpO2 greater than 90% during six minutes of walkin L/M Comments: O2A- ATS STANDARDS- NO STOPS Interpretation: Breathing room air, SpO2 is normal at rest and during exercise sufficient to increase pulse from 80 to 99 b/min, SpO2 is stable. On this basis, SpO2 is adequate at rest breathing room air and while walking breathing room air. This level of exercise is associated with no significant change of FEV1. Holden Pion M.D. By signing this report, the attending pulmonary physician certifies that he/she has personally reviewed and interpreted the graphic and numerical data associated with this pulmonary function study and has reviewed and /or edited a preliminary draft report and agrees with the written final report. PFT performed at:->[facility] Adult PFT Lab- [facility] Procedure:->Spirometry Procedure:->Oxygen Assessment Titration Pulmonary Function Test Interpretation SPIROMETRY: The FEVI and FVC are normal. The FEVI to FVC ratio is normal. FLOW VOLUME LOOPS: The inspiratory loop is normal. 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
--- NOTE | ~2025-03-23 | MR_ITS ---
EXAMINATION: MR shoulder LT wo con DATE: 03/23/2025 09:39 INDICATION: Left shoulder pain TECHNIQUE: Magnetic resonance imaging (MRI) of the left shoulder was performed without intravenous contrast. Axial PD-weighted FS FSE and coronal oblique PD- weighted FS FSE sequences were obtained before study was terminated at patient request due to a panic attack. COMPARISON: None. FINDINGS: Study limited due to absence of sagittal PD-weighted and T1-weighted images as well as of the coronal T2-weighted images. Coracoacromial arch: The acromion undersurface is curved in morphology (type II). The coracoacromial ligament is normal. Mild to moderate acromioclavicular osteoarthritis. Rotator cuff: Moderate supraspinatus tendinopathy and mild tendinopathy of the anterior infraspinatus tendon without discrete tear. The teres minor tendon is normal. Moderate supraspinatus tendinopathy without tear. Normal rotator cuff muscle bulk and signal. Biceps tendon, glenoid labrum and glenohumeral cartilage: Long head of the biceps tendon is normal. There is a tear of the 12:00 of the 9:00 position of the posterior superior glenoid labrum. There is mild partial- thickness cartilage loss with smooth chondral surface along the anterior glenoid. Humeral cartilage appears relatively preserved. Fluid: Physiologic amount of fluid in the glenohumeral joint and biceps tendon sheath. No loose osteochondral bodies. No abnormal fluid signal in the subacromial/subdeltoid bursa to suggest bursitis. Bones: Mild subarticular edema-like signal change at the lateral head of the clavicle. Marrow signal appears otherwise normal and PD-weighted images with no fracture or evident pathologic marrow replacing process. IMPRESSION: 1. Moderate supraspinatus tendinopathy and mild tendinopathy of the subscapularis and anterior infraspinatus tendons without discrete rotator cuff tear. 2. Mild glenohumeral osteoarthritis with tear of the superior to posterior glenoid labrum. 3. Mild to moderate acromioclavicular osteoarthritis with mild subarticular edema-like signal change at the lateral head of the clavicle. 4. Limited evaluation based solely upon axial and coronal PD weighted fat saturated sequences with study prematurely terminated at patient request due to panic attack. Reviewed, dictated and finalized at location A. 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 Moderate supraspinatus tendinopathy and mild tendinopathy of the subscapular is and anterior infraspinatus tendons without discrete rotator cuff tear. 2. Mild glenohumeral osteoarthritis with tear of the superior to posterior raman oid labrum. 3. Mild to moderate acromioclavicular osteoarthritis with mild subarticular lucita ma-like signal change at the lateral head of the clavicle. 4. Limited evaluation based solely upon axial and coronal PD weighted fat satur ated sequences with study prematurely terminated at patient request due to lizandro c attack.
--- OUTSIDE RECORDS SUMMARY | 2025-03-23 09:12 | XMS_ITS | Encounter Summary ---
Author Organization [facility] Healthcare Address [address] [place] [address] Care Team Providers Care Fisher Terrapin Name Role Phone Oscar Buenrostro MD Primary Care Provider Lida Mckeon MD Primary Care Provide r Fely Johnson RN Unavailable [facility] Encounter Details Date Type Department Care Team (Late st Contact Info) Description 01/27/2021 Telephone [facility] [address] [place] [id number] Carolee Reynolds RT Social History Tobacco Use Types Packs/Day Years Used Date Smoking Tobacco: Former Smokeless Tobacco: Never Sex and Gender Information Value Date Recorded Sex Assigned at Not on file Legal 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 [address] [place] [address] PCP - General Internal Medicine 04/18/22 Fely Johnson, RN Registered Nurse Pulmonary Disease 04/18/22 documented as of this encounter
--- OUTSIDE RECORDS SUMMARY | 2025-03-23 09:12 | XMS_ITS | Continuity of Care Document ---
Author Organization [place] [facility] Kristel Anderson Address [address] [place] [address] Assessment Encounter Date Assessment Date Assessment LastModified by Organization Details LastModified Time 12/24/2024 12/24/2024 59-year-old male presents for a new problem with his left shoulder. He reports shoulder has been bothering him for a long time, getting progressively worse. He has pain with lifting overhead and laying on that side at night. He has been taking meloxicam using Voltaren which does help. He has also been icing. He has not had any other treatments. He has no tenderness over the AC joint. Tenderness over the anterior and lateral shoulder. Range of motion 140/30/lower lumbar. He has good rotator cuff strength, 5/5, positive Carol, positive Mercer's. Positive Neer and Frey. X-rays of the shoulder were reviewed, demonstrating no acute bony abnormality we will begin with a course of conservative management with anti-inflammator ies and physical therapy. We gave him a refill on his meloxicam as well as a PT order. We also discussed a cortisone injection but he wanted to hold off on that until next time. We will plan to see him back in 6 weeks, if no improvement would plan for the cortisone injection or get an MRI. He is in agreement with the plan. [email or web address] Not available 12/24/2024 09:22:07 Plan of Treatment Reminders Order Date Submit Date Provider Last Modified By Organization Details Last Modified Time Details Appointments Any 15 2025 09:30A Earnest rod MD Not available Not available Not available Follow Up 2025 09:00A Earnest Clarke NP Not available Not available Not available Lab None recorded. Referral physical therapist referral - Please contact patient to schedule 2024 [facility], [address] [place], [address], 01/01/2025 19:32:17 Procedures None recorded. Surgeries None recorded. Imaging XR, shoulder, 2 or more view 2024 formerly [facility] [place], [address], [place], [address], 12/24/2024 18:14:15 Medication Orders meloxicam 15 mg tablet 2024 formerly [id number], [address] [place], [place], [id number], 12/24/2024 18:14:15 Patient TargetsNo targets recorded. Patient InstructionsNo instructions recorded. Reason for Referral Physical Therapist Referral for Pain of left shoulder region Please contact patient to schedule Referring Physician: Zachary Templeton, Orthopedic Surgery, Encounter Date: 12/24/2024 Results Created Date Observation Date Name Description Value Unit Range Abnormal Flag Note LastModifiedBy Organization Detail LastModifiedTime 12/25/19 25 XR, shoul rowena, 2 or more view No observ ation record ed. [email or web address] [facility] [place] [address], [place], [address], 12/24/2024 09:02:51 Result Notes None recorded. Problems Name Problem SNOMED Code Status Onset Date Resolution Date Notes Provider Name and Address Organization Details Recorded Time Ankle pain 726637733 Active Not Available [facility] 3 14:11:16 Foot callus 614711516 Active Not Available [facility] 3 14:11:16 Granulomat ous disorder 068434022 Active 2018 Not Available [facility] 3 14:11:15 Dyspnea on exertion 06100731 Active 2018 Not Available [facility] 3 14:11:16 Hyperglyce miguel ángel 85386725 Active 2021 Hany kay MD [address], [place], [address] , [facility] 5 08:59:28 Generalize d anxiety disorder 10832955 Active 2022 Hany kay MD [address], [place], [address] , [facility] 5 08:59:28 Porokerato sis 551723945 Active 2022 Not Available [facility] 3 14:11:16 [place] of toe 96739894 Active 2022 Not Available [facility] 3 14:11:16 Ankle pain 534111257 Active 2022 Not Available [facility] 3 14:11:16 Peroneal tendinitis of left lower limb 0859847912888 07 Active 2022 Not Available [facility] 3 14:11:16 Toothache 18866882 Active 2022 Savi mon, [facility] 3 18:16:21 Upper respirator y infection 60100119 Active 2022 Dominga mon, [facility] 3 14:44:33 Hypothyroi dism 25765851 Active 2022 Hany kay MD [address], [place], [address] , [facility] 5 08:59:28 Hyperlipid emia 91902605 Active 2022 Hany kay MD [address], [place], [address] , [facility] 5 08:59:27 Coronary arterioscl erosis 64285078 Active 2022 Hany kay MD [address], [address], [place], [address] , [facility] 5 11:24:12 Pterygium of bilateral eyes 0711373019804 04 Active 2022 Hany kay MD [address], [address], [place], [address] , [facility] 5 08:59:27 Chronic obstructiv e pulmonary disease 76383842 Active 2022 Hany kay MD [address], [place], [address] , [facility] 5 11:25:00 Macrocytos is 745771136 Active 2022 Hany kay MD [address], [place], [address] , [facility] 5 08:59:28 Obstructiv e sleep apnea syndrome 70545760 Active 2022 Hany kay MD [address], [place], [address] , [facility] 5 08:59:28 Gastroesop hageal reflux disease without esophagiti s 469638416 Active 2022 Hany kay MD [address], [place], [address] , [facility] 5 08:59:28 Allergic rhinitis 04115497 Active 2022 Hany kay MD [address], [place], [address] , [facility] 5 08:59:28 Red blood cell count outside reference range 568069905 Active 2023 Saira Contreras RN null, [place] [facility] [place] [facility] 4 11:03:58 Acute sinusitis 94712062 Active 2023 Saira Contreras RN null, [place] [facility] [place] [facility] 4 11:47:03 Pain of right shoulder joint 4663726255203 9100 Active 2023 Hany kay MD [address], [place], [address] , [facility] 4 10:55:35 Infection of tooth 241533685 Active 2023 Stefan Gutierrez CMA null, [place] [facility] 4 10:39:51 Headache 62431095 Active 2024 Hany kay MD [address], [place], [address] , [facility] 5 09:01:43 Liver enzymes level above reference range 764806318 Active 2024 Hany kay MD [address], [place], [address] , [facility] 5 09:04:05 Pain of left shoulder region Active 2024 Delilah Carrillo Lynn null, [place] [facility] 5 14:33:46 Hyperkalem ia 49362355 Active 2024 Hany kay MD [address], [place], [address] , [facility] 5 10:29:48 Pain of elbow region 27905302 Active 2024 Hany kay MD [address], [place], [address] , [facility] 5 11:06:57 Liver function test above reference range 941790046 Active 2024 Meena Ramos MD [address], [place], [address] , [email or web address] 5 11:06:37 Pain of left shoulder joint 2630987365723 9109 Active 2024 Hany kay MD [address], [place], [address] , [email or web address] 5 11:30:23 Notes:Medical History: Anxie ty/Depression Bilateral tinnitus Rhinosinusitis Early REM onset Obesity with mod OSAHS, AHI = 29, 11/08/21, on CPAP c/o [facility] Mild LVE EF 55% Mild TR Silica exposure Bronchiolitis Hyperlipidemia Prediabetes [place] hernia SHELLY Diverticulosis/Diverticulitis Colocutaneous fistula Iron deficiency RLS/PLMD Procedure History: CT-guided peritoneal fluid drainage 2017 Endoscopic sinus surgery 2020 Left pterygium surgery 2021 PAP Mask Use History: Respironics large Wisp nasal mask ResMed medium AirFit F20 full face mask Problem Notes None recorded. Procedures Surgical History Date Name Laterality Status Provider Name and Address Organization Details Recorded Time 01/27/20 25 Ortho - Cortisone Injection completed Zachary Templeton MD [address], [place], [address], [facility] 01/26/2025 16:25:44 07/11/19 23 Callus Debridement 2-4 completed Doe Baires DPM [address], [place], [address], [employer] [facility] 07/11/2022 13:56:46 06/06/19 23 Callus Debridement 2-4 completed Doe Baires DPM [address], [place], [address], [employer] [facility] [employer] [facility] 06/22/2022 13:37:03 09/25/19 21 SEPTOPLASTY (SURG) completed Not Available [facility] 05/24/2022 05:03:05 09/25/19 21 SEPTOPLASTY (SURG) completed Not Available [facility] 05/24/2022 05:03:05 Unlisted px sonya's [email or web address] completed Not Available [facility] 05/24/2022 04:42:13 thumb surgery completed [facility] Available [facility] 05/24/2022 04:42:13 Imaging Results None recorded. Procedure Notes None recorded. Medical Equipment None Reported. Allergies Allergen ID Allergen Name Allergen Category Reaction Reaction Severity Criticality Documentation Date Start Date Code Code System Note Provider Name and Address Organization Details Recorded Time 86051 Dilaudid medicatio n Not available Not available Not available 09/17/2024 17667 3 RxNorm JUDE Britton, [place] [facility] 5 08:56:47 80892 [employer] ramiro medicatio n other Not available low 03/16/2025 3423 RxNorm React ion: OTHER , React ion: Other Not Available [place] - External Data Service - prod 5 11:27:21 Medications Name Sig Start Date Stop Date Status Note LastModified by Organization Details LastModified Time cyclobenz aprine 10 mg tablet 03/09 completed Not Available Not Available Not Available amoxicill in 500 mg capsule TAKE 2 CAPSULES BY MOUTH TWICE DAILY 03/28 completed Not Available Not Available Not Available prednison e 10 mg tablet 11/23 completed Not Available Not Available Not Available ipratropi um 0.5 mg-albute rol 3 mg (2.5 mg base)/3 mL nebulizat ion soln 03/09 completed Not Available Not Available Not Available Vitamin C 500 mg tablet TAKE 1 TABLET BY MOUTH EVERY DAY 11/05 completed Not Available Not Available Not Available trazodone 50 mg tablet TAKE 1 TABLET BY MOUTH EVERY DAY NEEDED 11/05 completed Not Available Not Available Not Available cetirizin e 10 mg tablet TAKE 1 TABLET BY MOUTH ONCE DAILY NEEDED 11/05 completed Not Available Not Available Not Available azithromy salvatore 250 mg tablet TAKE 2 TABLETS BY MOUTH FOR 1 DAY THEN TAKE 1 TABLET BY MOUTH DAILY FOR 4 DAYS DIRECTED 11/30 completed Not Available Not Available Not Available ibuprofen 800 mg tablet TAKE 1 TABLET BY MOUTH EVERY 12 HOURS FOR 10 DAYS 12/16 completed Not Available Not Available Not Available alprazola m 1 mg tablet TAKE 1 TABLET BY MOUTH EVERY NIGHT AT BEDTIME NEEDED 05/08 completed Not Available Not Available Not Available ofloxacin 0.3 % eye drops 05/04 completed Not Available Not Available Not Available clarithro mycin 500 mg tablet TAKE 1 TABLET BY MOUTH TWICE DAILY 03/28 completed Not Available Not Available Not Available meloxicam 15 mg tablet TAKE 1 TABLET BY MOUTH EVERY DAY active Not Available Not Available No t Available bupivacai ne HCl 0.5 % (5 mg/mL) injection solution Take 2 mL by injectio n route. 2024 active Not Available Not Available Not Avai lable prednison e 20 mg tablet TAKE 2 TABLETS BY MOUTH EVERY DAY FOR 5 DAYS 11/23 completed Not Available Not Available Not Available acetamino phen 300 mg-codein e 30 mg tablet TK 1 T PO Q 6 TO 8 H PRN 03/09 completed Not Available Not Available Not Available acetamino phen 500 mg tablet TAKE 1 TABLET BY MOUTH EVERY 8 HOURS active Not Available Not Available No t Available amoxicill in 500 mg tablet TAKE 1 TABLET BY MOUTH EVERY 8 HOURS FOR 10 DAY 05/13 completed Not Available Not Available Not Available meloxicam 7.5 mg tablet TK 1 T PO QD 10/25 completed Not Available Not Available Not Available alprazola m 0.5 mg tablet 09/24 completed Not Available Not Available Not Available famotidin e 20 mg tablet 05/13 completed Not Available Not Available Not Available prednisol one acetate 1 % eye drops,medardo pension 03/28 completed Not Available Not Available Not Available triamcino lone acetonide 40 mg/mL suspensio n for injection Take 1 mL by injectio n route. 2024 active Not Available Not Available Not Avai lable levothyro xine 50 mcg tablet TAKE 1 TABLET BY MOUTH EVERY DAY active Not Available Not Available No t Available hydrocodo ne 7.5 mg-acetam inophen 325 mg tablet TAKE 1 TABLET BY MOUTH EVERY 4 HOURS NEEDED 11/11 completed Not Available Not Available Not Available cephalexi n 500 mg capsule TAKE ONE CAPSULE BY MOUTH FOUR TIMES DAILY FOR 2 DAYS active Not Available Not Available No t Available erythromy salvatore 5 mg/gram (0.5 %) eye ointment APPLY BEGINNIN G AFTER SURGERY IN THE EYE AT BEDTIME AND CONTINUE FOR 1 WEEK OR UNTIL EMPTY 03/28 completed Not Available Not Available Not Available ropinirol e 0.5 mg tablet TAKE 1 TABLET BY MOUTH EVERY NIGHT AT BEDTIME 12/01 completed Not Available Not Available Not Available omeprazol e 20 mg capsule,d elayed release TAKE 1 CAPSULE BY MOUTH EVERY DAY BEFORE A MEAL 11/02 completed Not Available Not Available Not Available monteluka st 10 mg tablet TAKE 1 TABLET BY MOUTH EVERY DAY 10/25 completed Not Available Not Available Not Available hydroxyzi ne HCl 25 mg tablet 12/01 completed Not Available Not Available Not Available lorazepam 1 mg tablet 03/09 completed Not Available Not Available Not Available azelastin e 137 mcg (0.1 %) nasal spray USE 1 SPRAY IN EACH NOSTRIL TWICE DAILY DIRECTED 11/05 completed Not Available Not Available Not Available methylpre dnisolone 4 mg tablets in a dose pack FOLLOW PACKAGE DIRECTIO NS 10/25 completed Not Available Not Available Not Available albuterol sulfate HFA 90 mcg/actua tion aerosol inhaler INHALE 2 PUFFS BY MOUTH EVERY 6 HOURS NEEDED active Not Available Not Available No t Available cefdinir 300 mg capsule TAKE 1 CAPSULE BY MOUTH EVERY 12 HOURS 10/21 completed Not Available Not Available Not Available fluticaso ne propionat e 50 mcg/actua tion nasal spray,medardo pension SHAKE LIQUID AND USE 2 SPRAYS IN EACH NOSTRIL DAILY 2023 active Not Available Not Available Not Avai lable itraconaz ole 100 mg capsule Take 2 capsules twice a day by oral route as directed for 14 days. active Do not use with alprazol am Not Available Not Available Not Available naproxen 500 mg tablet TK 1 T PO BID WITH FOOD 03/09 completed Not Available Not Available Not Available Microlet Lancet USE TO TEST BLOOD SUGAR TWICE DAILY active Not Available Not Available No t Available metoclopr amide 10 mg tablet TAKE 1 TABLET BY MOUTH TWICE DAILY 30 MINS BEFORE MEALS 10/25 completed Not Available Not Available Not Available amoxicill in 875 mg-potass ium clavulana te 125 mg tablet Take 1 tablet twice a day by oral route for 7 days. 02/18 /2025 completed Not Available Not Available Not Available escitalop vidhi 10 mg tablet TAKE 1 AND 1/2 TABLETS BY MOUTH AT BEDTIME active Not Available Not Available No t Available rosuvasta tin 10 mg tablet TAKE 1 TABLET BY MOUTH EVERY NIGHT AT BEDTIME active Not Available Not Available No t Available ketorolac 0.4 % eye drops 09/04 completed Not Available Not Available Not Available Spiriva with [employer] r 18 mcg and inhalatio n capsules 10/25 completed Not Available Not Available Not Available Atrovent HFA 17 mcg/actua tion aerosol inhaler INHALE 2 PUFFS BY MOUTH FOUR TIMES DAILY 10/25 completed Not Available Not Available Not Available chlorhexi dine gluconate 0.12 % mouthwash RINSE 15ML BY MOUTH FOR 30 SECONDS EVERY 12 HOURS active Not Available Not Available No t Available Gaviscon once daily 2022 active Not Available Not Available Not Avai lable Symbicort 160 mcg-4.5 mcg/actua tion HFA aerosol inhaler INHALE 2 PUFFS BY MOUTH TWICE DAILY. RINSE MOUTH WITH WATER AFTER USE. DO NOT SWALLOW active Not Available Not Available No t Available FeroSul 325 mg (65 mg iron) tablet TAKE 1 TABLET BY MOUTH EVERY DAY 11/02 completed Not Available Not Available Not Available Multi Vitamin 12/16 completed Not Available Not Available Not Available Anoro Ellipta 62.5 mcg-25 mcg/actua tion powder for inhalatio n INL 1 PUFF PO QD UTD 07/07 completed Not Available Not Available Not Available Arnuity Ellipta 100 mcg/actua tion powder for inhalatio n Inhale 1 puff every day by inhalati on route. 03/09 completed Not Available Not Available Not Available OneTouch Delica Plus Lancet 33 gauge USE TO TEST BLOOD SUGAR ONCE DAILY 11/23 completed Not Available Not Available Not Available OneTouch Delica Plus Lancet 30 gauge TEST TWICE DAILY active Not Available Not Available No t Available ID NOW COVID-19 Test Kit TEST DIRECTED TODAY 10/25 completed Not Available Not Available Not Available Flucelvax Quad (PF) 60 mcg (15 mcg x 4)/0.5 mL IM syringe ADM 0.5ML IM UTD 07/07 completed Not Available Not Available Not Available BinaxNOW COVID-19 Ag Self Test kit TEST DIRECTED TODAY 03/28 completed Not Available Not Available Not Available Contour Plus Test Strip USE TO TEST BLOOD SUGAR TWICE DAILY active Not Available Not Available No t Available Contour Plus Blue Meter USE TO TEST BLOOD SUGAR TWICE DAILY active Not Available Not Available No t Available Vitals Date Recorded Body height Body mass index (BMI) Body weight Provider Name and Address Organization Details Last Updated DateTime 12/24/2024 165.1 cm 27.8 kg/m2 43435.93 g Belia Allen [facility]NA [facility] 12/24/2024 09:01:53 Social History Question Answer Notes LastModified by Organizat ion Details LastModified Time Tobacco Smoking Status Former Smoker quit 2011 MUSTAPHA Moreno, [facility] 05/08/2023 10:28:06 Do You Have An Advance Directive? No [id number] Information not available 05/24/2022 What Is Your Level Of Caffeine Consumption? Moderate [id number] Information not available 05/24/2022 In The 14 Days Before Symptom Onset, Have You Had Close Contact With A Laboratory-confi rmed COVID-19 While That Case Was Ill? No [email or web address] Information not available 05/08/2023 In The 14 Days Before Symptom Onset, Have You Had Close Contact With A Person Who Is Under Investigation For COVID-19 While That Person Was Ill? No [email or web address] Information not available 05/08/2023 What Type Of Diet Are You Following? REGULAR [id number] Information not available 05/24/2022 Which Illicit Or Recreational Drugs Have You Used? Marijuana [email or web address] Information not available 05/08/2023 What Is The Highest Grade Or Level Of School You Have Completed Or The Highest Degree You Have Received? [id number] [email or web address] Information not available 05/08/2023 Do You Have An Electrostatic Air Filter? No [email or web address] Information not available 05/08/2023 Have There Been Any Changes To Your Family Or Social Situation? No [email or web address] Information not available 05/08/2023 What Is The Fluoride Status Of Your Home? Unknown [email or web address] Information not available 05/08/2023 When Did You Quit Smoking? 6-10yearssincelast cigarette [email or web address] Information not available 05/08/2023 Are There Any Guns Present In Your Home? Yes [email or web address] Information not available 05/08/2023 Do You Have A Humidifier? No [email or web address] Information not available 05/08/2023 Do You Use Insect Repellent Routinely? Yes [email or web address] Information not available 05/08/2023 Where [facility] You [facility]? [facility] [email or web address] Information not available 05/08/2023 Do You Have A Medical Power Of Craft Demonstrator? No [email or web address] Information not available 05/08/2023 Do You Have Moisture Problems In Your Home? No [email or web address] Information not available 05/08/2023 What Was The Date Of Your Most Recent Tobacco Screening? 12/24/2024 [email or web address] Information not available 12/24/2024 Have You Ever Been Counseled For Unhealthy Alcohol Use? No [email or web address] Information not available 05/08/2023 Do You Have Any Pets? Yes [email or web address] Information not available 05/08/2023 What Is Your Relationship Status? [id number] Information not available 05/24/2022 Do You Use Your Seat Belt Or Car Seat Routinely? Yes [email or web address] Information not available 05/08/2023 Do You Have Smoke And Carbon Monoxide Detectors In Your Home? Yes [email or web address] Information not available 05/08/2023 Are You Passively Exposed To Smoke? Yes [email or web address] Information not available 05/08/2023 Are There Any Smokers In Your House? Yes [email or web address] Information not available 05/08/2023 What Types Of Sporting Activities Do You Participate In? None [email or web address] Information not available 05/08/2023 Do You Use Sunscreen Routinely? Yes [email or web address] Information not available 05/08/2023 Has Tobacco Cessation Counseling Been Provided? No [email or web address] Information not available 05/08/2023 Have You Recently Traveled Abroad? No [email or web address] Information not available 05/08/2023 Have You Used IV Drugs? No [email or web address] Information not available 05/08/2023 Do You Have Any Dietary Restrictions? No [email or web address] Information not available 05/08/2023 Sex: Male Functional Status Question Answer Note LastModified by Organizat ion Details LastModified Time Do you use any illicit or recreational drugs? Yes Information not available 05/08/2023 Do you or have you ever used any other forms of tobacco or nicotine? No [email or web address] Information not available 05/08/2023 What is your level of alcohol consumption? Occasional [id number] Information not available 05/24/2022 Are you currently employed? No Disability [email or web address] Information not available 09/04/2024 What is your exercise level? None stays active [id number] Information not available 05/24/2022 Mental Status Question Answer Note LastModified by Organization D etails LastModified Time Do you feel stressed (tense, restless, nervous, or anxious, or unable to sleep at night)? [id number] [email or web address] Information not available 05/08/2023 Family History Relationship Description Onset Age of this Age Resolved Age Notes LastModified by Organization Details LastModified Time Father Diabetes mellitus [id number] Not available 05/24/2022 04:42:18 Mother Hyperlipidem ia Not available 01/26 14:31:49 Brother Diabetes mellitus [id number] Not available 05/24/2022 04:42:18 Medical History Condition Response NO SIGNIFICANT PAST MEDICAL HISTORY N USE OF BLOOD THINNERS N MRSA N SLEEP APNEA N DIABETES, TYPE N ALLERGIES/HAYFEVER N PARATHYROID DISEASE N ENT N LUNG DISEASE/DISORDER Y SEASONAL ALLERGIES Y HEARTBURN / REFLUX N INSOMNIA N COPD N RADIATION / CHEMOTHERAPY N HIGH CHOLESTEROL / HYPERLIPIDEMIA Y HYPERTHYROIDISM N BLOOD DISEASES N EAR OR HEARING PROBLEMS N HEPATITIS / LIVER DISEASE N HYPOTHYROIDISM N DEPRESSION (INCLUDING POST ) N SLEEP DISORDER N STROKE/TIA N ULCERS N HEADACHES/MIGRAINES Y SEIZURES/EPILEPSY N CHF N PACEMAKER N DIZZINESS N HEART DISEASE/HEART PROBLEMS N AIDS/HIV N FRACTURES N HYPERTENSION N CANCER: SPECIFY N TOURETTE'S N OBESITY N BLOOD TRANSFUSION N ANESTHESIA COMPLICATIONS N ANEMIA/BLOOD DISORDER N CHRONIC EAR INFECTIONS N ANEURYSM N HISTORY WITH COMPLICATIONS WITH ANESTHES IA ? N TUBERCULOSIS N Immunizations Vaccine Type Date Status Note Provider Nam e and Address Organization Details Recorded Time Influenza, MDCK, quadrivalent, PF 01/05/2020 completed Not Available [facility] 5 10:40:02 COVID-19, mRNA, LNP-S, PF, 30 mcg/0.3 mL dose 06/29/2020 completed Not Available [facility] 10:40:02 COVID-19, mRNA, LNP-S, PF, 30 mcg/0.3 mL dose 07/27/2020 completed Not Available [facility] 10:40:02 Influenza, MDCK, quadrivalent, PF 01/10/2022 completed Not Available [facility] 5 10:40:02 Influenza, MDCK, quadrivalent, PF 01/08/2023 completed Not Available [facility] 10:40:02 Influenza, split virus, trivalent, PF 01/28/2024 completed Not Available [facility] 2024 10:40:02 COVID-19, mRNA, LNP-S, PF, 50 mcg/0.5 mL 01/28/2024 completed Not Available [facility] 10:40:02 Past Encounters Encounter ID Performer Location Encounter Start Date Encounter Closed Date Diagnosis/Indication Diagnosis SNOMED-CT Code Diagnosis ICD10 Code Diagnosis IMO Codes Diagnosis Note [id number] Hany kay MD [facility] [facility] [address] [facility], [facility] [address] [place] [address] 12/16/2024 10:38:52 12/16/2024 11:37:58 Screening - NAD [id number] Z13.9 C-scope: in 2017, diagnosed with diverticul itis in [facility], get the reportC-wi ope: 05/09/2016 : Dr Gaines, referred to Dr Black ed 12/16/2024 Get yearly flu shotGet tdap if not doneUTD COVID 19 vaccine and boostersCa n do shingrix vaccine RTC in 4 monthsDo labsER if worse, he and his did verbalize his understand ing of the above Hyperlipidemia 99453317 E78.5 On rosuvastat in 10mg dailyGet labs Coronary arteriosclerosis 69826733 I25.10 States that he has not seen cardiology , used to see his PCP only ECHO: [facility] Dr Phelps 11/08/2021 Dr Phelps [facility] 12/13/2021 , f/u in 6 monthsDr Lenin [facility] 05/14/2023 : F/u in 6 monthsDr Keith Norman 07/18/2024 Pterygium of bilateral eyes [id number] 55868 H11.003 Has seen the eye MD as per his history 11/02/2022 , and now will need to do cataract surgery OV 05/13/2024 : Has L eye pain with a persisting pterygium, will get another referral and will be see today by eye MDThe patient has adamantly declined an ER evaluation , impressed on him and his that eye pain can be a serious issue and he must see the eye MD today OV 06/05/2024 : See eye MD Chronic ob structive pulmonary disease 35452891 J44.9 On albuterolO n symbicortN ot on spirivaNot on atroventNo t on singulairS ees pulm Dr Bajwa in [facility] States that Dr Farnsworth has tried to change his CPAP settings but these have not yet helpedSees Dr Bajwa in 03/2025 Generalize d anxiety disorder 15966863 F41.1 Not on alprazolam 1mg q hs PRN On lexapro 10mg 1.5tabs, does well on this dose, sees psychiatry at [facility] Macrocytosis 893924394 D 75.89 Hyperglycemia 87516660 R 73.9 Diet and exerciseNo t on metformin 500mg po bid Stable A1CGet labsDr Dequan 07/10/2022 Has seen his eye MD and is now scheduled for another pterygium surgery but Dr Burr has not yet contacted him Today 06/05/2024 : States that he did see eye MD and was told that his pterygium is not the cause of his headache, he denies any headaches today Obstructiv e sleep apnea syndrome 80876513 G47.33 Home sleep study 11/08/2021 : [facility] 11/06/2023 : Sees Dr Bajwa his pulm in [facility], does not want to see Dr Farnsworth, states that he will not wear the CPAP, sleeps like a 'baby', the CPAP gives him 'panic attacks' Gastroesop hageal reflux disease without esophagitis 490758353 K21.9 S/p EGD 02/15/2022 On PPI Hypothyroidism 85320506 E03.9 US thyroid 11/01/2022 : mildly prominent thyroid, no nodulesFT4 0.89On levothyrox ine 50mcgs daily, advised how to take this, repeat the labs Allergic rhinitis 696057 04 J30.9 Mild congestion with early am cough, will start on flonase and zyrtec, if not better see ENT Headache 72935285 R51.9 None now, states that he thought it was from his dental caries, now is being treated with an antibiotic , last headache was a week agoNot worst headache of his life, no N/V, no dizziness, no dysarthria or diplopiaHa s also noted L eye pain, he will now be seen by eye MD today, has declined any referral to the [facility] CT head, he may need to see neurology CT Head 05/15/2024 : Neg 025, states that he does not have any headache or any complaints Liver enzy mes level above reference range 121728959 R74.01 Liver: Mild hepatomega ly 06/18/2024 GGT/Hep panel: Neg 09/01/2024 See GI referred again 09/04/2024 Dr Ramos 09/10/2024 Pain of elbow region 743 55278 M25.522 [id number] Will refer to ortho Elaine Rogers NP ortho 09/17/2024 , treated with meloxicamX R elbow 09/17/2024 Screening for malignant neoplasm of colon 086218772 Z12.11 200684 Pain of le ft shoulder joint [id number] M25.512 [id number] Get a referral to ortho [id number] Zachary Templeton MD [facility] Kristel Anderson [address] [facility] [address] [place] [address] 12/24/2024 08:59:08 12/24/2024 09:27:31 Pain of left shoulder region [id number] M25.512 [id number] Health Concerns Section Related Observation LastModified by Organization Viri betst LastModified Time None Recorded Concern Status LastModified by Organization Details LastModified Time None Recorded Payers Encounter Date Sequence Insurance Name Policy Number Policy Pinto Covered Member ID Pinto Member ID Guarantor Name 12/24/2024 1 [facility] - DOS ON OR AFTER 20 (MEDICAID REPLACEMENT - HMO) Vishal Curry [id number] Vishal Patricio
--- OUTSIDE RECORDS SUMMARY | 2025-03-23 09:12 | XMS_ITS ---
Author Organization [facility] Address [address] [place] [address] Care Team Providers Care Acting Teacher Name Role Phone Hany Mckeon MD Primary Care Provider [place] Chronic Condition Monitoring Status:Enrolled (Active) Program category:Remote Patient Monitoring Start date:09/12/2024 Enrollment date:09/12/2024 Related social drivers of health:Intimate Partner Violence, Social Connections, Alcohol Use, Tobacco Use, Financial Resource Strain,Depression, Stress, Physical Activity, Food Insecurity, Transportation Needs, Housing Stability, Utilities Continued Care and Services Coordination
--- OUTSIDE RECORDS SUMMARY | 2025-03-23 09:13 | XMS_ITS | Data Portability ---
Author Organization [place] [facility] [employer], Main Office Address [address] [place] [address] Assessment Encounter Date Assessment Date Assessment LastModified by Organization Details LastModified Time 09/17/2024 09/17/2024 59 yo patient presents today with left elbow pain and tingling that's been going on for a few months. He denies any injury but states he started working out around the time his pain started. He has been having pain in the elbow with lifting and grasping, also complains of tingling around the elbow that shoots down to his fingers. 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 He has tried taking ibuprofen a few times but does not like to take medications. Review of systems per patient questionnaire Imaging: X-rays reviewed show no acute bony abnormality, no fracture. Preserved joint space. Small posterior ulnar osteophyte. Physical exam: Tenderness with palpitation over lateral epicondyle. Pain in this area with resisted wrist flexion and extension. Positive Tinel's at elbow. Negative Phalen's and Tinel's at wrist. Sensation intact. No issues with ROM. We discussed that he is likely experiencing lateral epicondylitis and mild ulnar nerve entrapment. We will give him a handout with lateral epicondyle stretches and exercises. We will order meloxicam for anti-inflammator y therapy. We discussed trying Voltaren gel over the area and a counterforce strap. For the tingling we recommend doing his best to keep the arm straight at night time. We will have him back in 6-8 weeks if he is still experiencing symptoms. At that time we can do a cortisone injection and possibly order an EMG if he is still experiencing symptoms. He is in agreement with this plan [email or web address] Not available 09/17/2024 09:49:33 12/16/2024 12/16/2024 05/01/2022: Urine micro alb <6.0 A1C 5.8 B12/Folate/TSH/F T4/Lipids: WNL CMP: Gluc 118 CBC: MCV 99.6 10/23/2022: A1C 5.6 Gluc 137 MCV 97.2 04/03/2023: A1C 5.6 Gluc 107, Glob 2.5L, TP WNL MCV 101.7 (b12/folate/TSH: WNL) 11/02/2023: A1C 5.4 Gluc 116 MCV 101.1, PLT 141 Lipids: stable 05/15/2024: A1C 5.6 Gluc 115, AST 88H MCV 101.2 09/01/2024: K 5.2, Gluc 112 MCV 101.3 12/12/2024: A1C 5.4 Gluc 116 MCV 100.6 45 minutes spent with the patient and his 9.50am till 10.35am Labs and referrals provided [email or web address] Not available 12/16/2024 11:34:10 12/24/2024 12/24/2024 59-year-old male presents for a [...] rotator cuff strength, 5/5, positive Carol, positive Price's. Positive Neer and Frey. X-rays of the [...] He is in agreement with the plan. Not available 12/24/2024 09:22:07 01/26/2025 01/26/2025 59-year-old male presents for follow-up of his left shoulder. He reports feeling worse with physical therapy and taking meloxicam. He currently rates pain as 10/10. He has tenderness palpation over the AC joint and diffusely over the shoulder anteriorly laterally and posteriorly. Range motion 130/20/back pocket. He has 4/5 strength with elevation and external rotation, positive Carol,, positive Neer and Frey, positive Price's Given his persistent symptoms and worsening symptoms currently rated 10/10, proceed with cortisone injection as previously discussed. He tolerated that well. We will have him pause PT for now and also order MRI for the shoulder given his failure of improvement with conservative management. We will see him back after the scan. He is in agreement with plan. Not available 01/26/2025 16:24:52 Plan of Treatment Reminders Order Date Submit Date Provider Last Modified By Organization Details Last Modified Time Details Appointments Any 15 2025 09:30A Earnest rod MD Not available Not available Not available Follow Up 20 2025 09:00A M Patsy Clarke NP Not available Not available Not available Lab vitamin B12 + folate, serum or blood [address] (Lab), [address] [place], [address], 12/16/2024 11:36:45 lipid panel, serum [address] (Lab), [address] [place], [address], 12/16/2024 11:36:46 TSH, serum or plasma [address] (Lab), [address] [place], [address], 12/16/2024 11:36:46 CBC w/ auto diff [address] (Lab), [address] [place], [address], 12/16/2024 11:36:46 CMP, serum or plasma [address] (Lab), [address] [place], [address], 12/16/2024 11:36:46 glycohemo globin, total, blood [address] (Lab), [address] [place], [address], 12/16/2024 11:36:45 microalbu min, urine [address] (Lab), [address] [place], [address], 12/16/2024 11:36:45 actin IgG Ab, QN, serum or plasma [address] (Lab), [address] [place], [address], 10/27/2024 09:12:55 unlisted lab - alpha 1 antitryps in quant [address] (Lab), [address] [place], [address], 10/27/2024 09:13:04 mitochond rial Ab, serum [address] (Lab), [address] [place], [address], 10/27/2024 09:13:13 actin IgG Ab, QN, serum or plasma [address] (Lab), [address] [place], [address], 10/27/2024 09:13:24 cerulopla smin, serum [address] (Lab), [address] [place], [address], 10/27/2024 09:13:36 HBsAg (hepatiti s B surface Ag), serum [address] (Lab), [address] [place], [address], 10/27/2024 09:13:47 hepatitis C Ab, serum [address] (Lab), [address] [place], [address], 10/27/2024 09:14:03 HBsAg (hepatiti s B surface Ag), serum [address] (Lab), [address] [place], [address], 10/27/2024 09:13:55 Referral physical therapist referral - Please contact patient to schedule 2024 025 [facility], [address] [place], [address], 01/01/2025 19:32:17 ophthalmo logist referral - Please call patient to schedule an appointme nt. Thank you. 2024 025 [email or web address] [facility], [address] , [place], [address], 03/16/2025 11:28:15 orthopedi c surgeon referral - Please call patient to schedule an appointme nt. Thank you. 2024 025 KIEL Templeton MD, [address] [facility], [address], [place], [address], 12/24/2024 09:23:19 orthopedi c surgeon referral - Please call patient to schedule an appointme nt. Thank you. 2024 025 IKEL Templeton MD, [address], [address], [place], [address], 01/26/2025 16:26:58 gastroent erologist referral - Please call patient to schedule an appointme nt. Thank you. 2024 025 [email or web address] Meena Ramos MD, [address], [address], [place], [address], 03/16/2025 11:27:47 Procedures injection /aspirati on joint/bur sa (PROC) 2024 [email or web address] 1 In-Office Order, Internal Use Only DO Not Attach Compendium DO Not Attach Compendium, Do Not Delete/merge, [id number] 01/26/2025 15:11:00 colonosco py screening (PROC) - Please call patient to schedule an appointme nt. Thank you. 2024 025 [email or web address] Ramos MD, [address], [address], [place], [address], 03/16/2025 11:29:00 Surgeries None recorded. Imaging MRI, shoulder, w/o contrast - Please provide pt with disc of images to bring to appointme nt. 2024 [facility], [address], [place], [address], 03/23/2025 09:48:27 XR, shoulder, 2 or more view 2024 025 [email or web address] [place], [address], [place], [address], 12/24/2024 18:14:15 XR, elbow, 3 or more view 2024 [facility] [place], [address], [place], [address], 09/17/2024 10:34:26 Medication Orders bupivacai ne HCl 0.5 % (5 mg/mL) injection solution [address] [id number], [address] [place], [place], [id number], 01/26/2025 16:43:59 triamcino lone acetonide 40 mg/mL suspensio n for injection [address] [facility], [address] [place], [place], [id number], 01/26/2025 16:43:59 meloxicam 15 mg tablet [address] [facility]698, [address] [place], [place], [id number], 12/24/2024 18:14:15 meloxicam 15 mg tablet [address] [facility]35, [address] [place], [place], [id number], 09/17/2024 10:34:26 Patient TargetsNo targets recorded. Patient Instructions Encounter Date Encounter Id Patient Instructions Last Modified By Organization Details Last Modified Time 09/10/2024 [id number] PT WITH ELEVATED LFTs. CHECK MARKERS . SX MAY BE B/C OF LIPID DZ AND STATIN DRUG. [email or web address] Not available 09/10/2024 11:52:01 Reason for Referral Supervisor Respiratory Referral for Pterygium of bilateral eyes Please call patient to schedule an appointment. Thank you. Referring Physician: Hany Mckeon, Internal Medicine, Encounter Date: 12/16/2024 Honey Blender Referral for Liver enzymes level above reference range Please call patient to schedule an appointment. Thank you. Referring Physician: Hany Mckeon, Internal Medicine, Encounter Date: 12/16/2024 Orthopedic Surgeon Referral for Pain of elbow region Please call patient to schedule an appointment. Thank you. Referring Physician: Hany Mckeon, Internal Medicine, Encounter Date: 12/16/2024 Orthopedic Surgeon Referral for Pain of left shoulder joint Please call patient to schedule an appointment. Thank you. Referring Physician: Hany Mckeon, Internal Medicine, Encounter Date: 12/16/2024 Physical Therapist Referral for Pain of left shoulder region Please contact patient to schedule Referring Physician: Zachary Templeton, Orthopedic Surgery, Encounter Date: 12/24/2024 Results Created Date Observation Date Name Description Value Unit Range Abnormal Flag Note LastModifiedBy Organization Detail LastModifiedTime 09/18/19 25 XR, elbow , 3 or more view No observ ation record ed. [email or web address] [facility] [place] [address], [place], [address], 09/17/2024 09:41:41 12/25/19 25 XR, shoul rowena, 2 or more view No observ ation record ed. [email or web address] [facility] [place] [address], [place], [address], 12/24/2024 09:02:51 Result Notes None recorded. Problems Name Problem SNOMED Code Status Onset Date Resolution Date Notes Provider Name and Address Organization Details Recorded Time Ankle pain 103403971 Active Not Available [facility] 3 14:11:16 Foot callus 474182317 Active Not Available [employer] 3 14:11:16 Granulomat ous disorder 494739555 Active 2018 Not Available [facility] 3 14:11:15 Dyspnea on exertion 55925854 Active 2018 Not Available [facility] 3 14:11:16 Hyperglyce miguel ángel 24324725 Active 2021 Hany kay MD [address], [address], [place], [address] , [facility] [employer] [facility] 5 08:59:28 Generalize d anxiety disorder 43338078 Active 2022 Hany kay MD [address], [address], [place], [address] , [facility] [employer] [facility] 5 08:59:28 Porokerato sis 999007208 Active 2022 Not Available [facility] 3 14:11:16 [place] of toe 04444786 Active 2022 Not Available [facility] 3 14:11:16 Ankle pain 130192710 Active 2022 Not Available [facility] 3 14:11:16 Peroneal tendinitis of left lower limb 2478586002810 07 Active 2022 Not Available [facility] 3 14:11:16 Toothache 85766662 Active 2022 Savi mon, [employer] [facility] 3 18:16:21 Upper respirator y infection 16079894 Active 2022 Dominga mon, [employer] [facility] 3 14:44:33 Hypothyroi dism 13104203 Active 2022 Hany kay MD [address], [address], [place], [address] , [facility] [employer] [facility] 5 08:59:28 Hyperlipid emia 97049646 Active 2022 Hany kay MD [address], [address], [place], [address] , [facility] [employer] [facility] 5 08:59:27 Coronary arterioscl erosis 37970214 Active 2022 Hany kay MD [address], [address], [place], [address] , [facility] [place] [facility] 5 11:24:12 Pterygium of bilateral eyes 5248632751915 04 Active 2022 aHny kay MD [address], [address], [place], [address] , [facility] [place] [facility] 5 08:59:27 Chronic obstructiv e pulmonary disease 07364912 Active 2022 Hany kay MD [address], [address], [place], [address] , [facility] 5 11:25:00 Macrocytos is 158732949 Active 2022 Hany kay MD [address], [address], [place], [address] , [facility] 5 08:59:28 Obstructiv e sleep apnea syndrome 55085239 Active 2022 Hany kay MD [address], [address], [place], [address] , [facility] 5 08:59:28 Gastroesop hageal reflux disease without esophagiti s 615420856 Active 2022 Hany kay MD [address], [address], [place], [address] , [facility] 5 08:59:28 Allergic rhinitis 79674442 Active 2022 Hany kay MD [address], [address], [place], [address] , [facility] 5 08:59:28 Red blood cell count outside reference range 110025834 Active 2023 Saira Contreras RN null, [facility] [employer] [facility] 4 11:03:58 Acute sinusitis 54290890 Active 2023 Saira Contreras RN null, [facility] [employer] [facility] 4 11:47:03 Pain of right shoulder joint 2172114512757 9100 Active 2023 Hany kay MD [address], [address], [place], [address] , [facility] [place] [facility] 4 10:55:35 Infection of tooth 224436269 Active 2023 Stefan Gutierrez CMA null, [facility] [place] [facility] 4 10:39:51 Headache 12449894 Active 2024 Hany kay MD [address], [address], [place], [address] , [facility] 5 09:01:43 Liver enzymes level above reference range 937262401 Active 2024 Hany kay MD [address], [address], [place], [address] , [facility] 5 09:04:05 Pain of left shoulder region Active 2024 JUDE Britton null, [facility] 5 14:33:46 Hyperkalem ia 31952019 Active 2024 Hany kay MD [address], [address], [place], [address] , [facility] 5 10:29:48 Pain of elbow region 00600200 Active 2024 Hany kay MD [address], [address], [place], [address] , [facility] 5 11:06:57 Liver function test above reference range 640257533 Active 2024 Meena Ramos MD [address], [address], [place], [address] , [facility] 5 11:06:37 Pain of left shoulder joint 5432722944936 9109 Active 2024 Hany kay MD [address], [address], [place], [address] , [employer] 11:30:23 Notes:Medical History: Anxie ty/Depression Bilateral tinnitus Rhinosinusitis Early REM onset Obesity with mod OSAHS, AHI = 29, 11/08/21, on CPAP c/o [place] Home Patient Mild LVE EF 55% Mild [...] - Cortisone Injection completed Zachary Templeton MD [address], [address], [place], [address], [employer] 01/26/2025 16:25:44 07/11/19 23 Callus Debridement 2-4 completed Doe Baires DPM [address], [address], [place], [address], [employer] 07/11/2022 13:56:46 06/06/19 23 Callus Debridement 2-4 completed Doe Baires DPM [address], [address], [place], [address], [employer] 06/22/2022 13:37:03 09/25/19 21 SEPTOPLASTY (SURG) completed Not Available [facility] 05/24/2022 05:03:05 09/25/19 21 SEPTOPLASTY (SURG) completed Not Available [facility] 05/24/2022 05:03:05 Unlisted [email or web address] completed Not Available [facility] 05/24/2022 04:42:13 thumb surgery completed Not Available [facility] 05/24/2022 04:42:13 Imaging Results None recorded. Procedure Notes None recorded. Medical Equipment None Reported. Allergies Allergen ID Allergen Name Allergen Category Reaction Reaction Severity Criticality Documentation Date Start Date Code Code System Note Provider Name and Address Organization Details Recorded Time 60755 Dilaudid medicatio n Not available Not available Not available 09/17/2024 00217 3 RxNorm JUDE Britton, [place] [facility] [employer] 5 08:56:47 25489 [employer] ramiro medicatio n other Not available low 03/16/2025 3423 RxNorm React ion: OTHER , React ion: Other Not Available kiel - External Data Service - prod 5 [...] day by oral route for 7 days. 05/13 completed Not Available Not Available Not [...] height Body mass index (BMI) Body weight Heart rate Oxygen saturation Systolic And Diastolic Provider Name and Address Organization Details Last Updated DateTime 165.1 cm 28.3 kg/m2 99731.7 g 75 /min 97 % 114/72 mm[Hg] Maira Moore [facility] [employer] [facility] 11:02:58 Date Recorded Body height Body mass index (BMI) Body weight Pain severity - 0-10 verbal numeric rating [Score] - Reported Provider Name and Address Organization Details Last Updated DateTime 09/17/2024 165.1 cm 27.8 kg/m2 33910.93 g 8 Delilah Carrillo [facility] [employer] [facility] 09/17/2024 08:56:23 Date Recorded Body height Body mass index (BMI) Body weight Body temperature Pain severity - 0-10 verbal numeric rating [Score] - Reported Heart rate Oxygen saturation Systolic And Diastolic Provider Name and Address Organization Details Last Updated DateTime 165.1 cm 28.3 kg/m2 14617.7 g 97 [degF] 5 84 /min 98 % 110/68 mm[Hg] Shanta Vallecillo MA [employer] [facility] 10:47:10 Date Recorded Body height Body mass index (BMI) Body weight Provider Name and Address Organization Details Last Updated DateTime 12/24/2024 165.1 cm 27.8 kg/m2 53254.93 g Belia Allen CNA [employer] [facility] 12/24/2024 09:01:53 Date Recorded Body height Body mass index (BMI) Body weight Pain severity - 0-10 verbal numeric rating [Score] - Reported Provider Name and Address Organization Details Last Updated DateTime 01/26/2025 165.1 cm 27.8 kg/m2 31507.93 g 10 Delilah Carrillo Lynn [employer] [facility] 01/26/2025 14:32:47 Social History Question Answer Notes LastModified by Organizat ion Details LastModified Time Tobacco Smoking Status Former Smoker quit 2011 MUSTAPHA Moreno, [employer] [facility] 05/08/2023 10:28:06 Do You Have An Advance Directive? No [id number] Information not available 05/24/2022 What Is Your Level Of Caffeine Consumption? Moderate [id number] Information not available 05/24/2022 In The 14 Days Before Symptom Onset, Have You Had Close Contact With A Laboratory-confi rmed COVID-19 While That Case Was Ill? No [email or web address] Information not available 05/08/2023 In The 14 Days Before Symptom Onset, Have You Had Close Contact With A Person Who Is Under Investigation For COVID-19 While That Person Was Ill? No [email or web address] Information not available 05/08/2023 What Type Of Diet Are You Following? REGULAR [id number] Information not available 05/24/2022 Which Illicit Or Recreational Drugs Have You Used? Marijuana Information not available 05/08/2023 What Is The Highest Grade Or Level Of School You Have Completed Or The Highest Degree You Have Received? [id number] [email or web address] Information not available 05/08/2023 Do You Have An Electrostatic Air Filter? No Information not available 05/08/2023 Have There Been Any Changes To Your Family Or Social Situation? No Information not available 05/08/2023 What Is The Fluoride Status Of Your Home? Unknown [email or web address] Information not available 05/08/2023 When Did You Quit Smoking? 6-10yearssincelast cigarette [email or web address] Information not available 05/08/2023 Are There Any Guns Present In Your Home? Yes [email or web address] Information not available 05/08/2023 Do You Have A Humidifier? No Information not available 05/08/2023 Do You Use Insect Repellent Routinely? Yes [email or web address] Information not available 05/08/2023 Where Do You Live? [facility] [email or web address] Information not available 05/08/2023 Do You Have A Medical Power Of Logistics Operations Director? No [email or web address] Information not available 05/08/2023 Do You Have Moisture Problems In Your Home? No [email or web address] Information not available 05/08/2023 What Was The Date Of Your Most Recent Tobacco Screening? 12/24/2024 [email or web address] Information not available 12/24/2024 Have You Ever Been Counseled For Unhealthy Alcohol Use? No [email or web address] Information not available 05/08/2023 Do You Have Any Pets? Yes [email or web address] Information not available 05/08/2023 What Is Your Relationship Status? [id number] Information not available 05/24/2022 Do You Use Your Seat Belt Or Car Seat Routinely? Yes [email or web address] Information not available 05/08/2023 Do You Have Smoke And Carbon Monoxide Detectors In Your Home? Yes [email or web address] Information not available 05/08/2023 Are You Passively Exposed To Smoke? Yes [email or web address] Information not available 05/08/2023 Are There Any Smokers In Your House? Yes Information not available 05/08/2023 What Types Of Sporting Activities Do You Participate In? None Information not available 05/08/2023 Do You Use Sunscreen Routinely? Yes [email or web address] Information not available 05/08/2023 Has Tobacco Cessation Counseling Been Provided? No [email or web address] Information not available 05/08/2023 Have You Recently Traveled Abroad? No [email or web address] Information not available 05/08/2023 Have You Used IV Drugs? No [email or web address] Information not available 05/08/2023 Do You Have Any Dietary Restrictions? No [email or web address] Information not available 05/08/2023 Sex: Male Functional Status Question Answer Note LastModified by Organizat ion Details LastModified Time Do you use any illicit or recreational drugs? Yes [email or web address] Information not available 05/08/2023 Do you or have you ever used any other forms of tobacco or nicotine? No [email or web address] Information not available 05/08/2023 What is your level of alcohol consumption? Occasional [id number] Information not available 05/24/2022 Are you currently employed? No Disability [email or web address] Information not available 09/04/2024 What is your exercise level? None stays active [id number] Information not available 05/24/2022 Mental Status Question Answer Note LastModified by Organization D etails LastModified Time Do you feel stressed (tense, restless, nervous, or anxious, or unable to sleep at night)? [id number] [email or web address] Information not available 05/08/2023 Family History Relationship Description Onset Age of this Age Resolved Age Notes LastModified by Organization Details LastModified Time Father Diabetes mellitus [id number] Not available 05/24/2022 04:42:18 Mother Hyperlipidem ia [email or web address] Not available 01/26 14:31:49 Brother Diabetes mellitus [id number] Not available 05/24/2022 04:42:18 Medical History Condition [...] MDCK, quadrivalent, PF 01/05/2020 completed Not Available [facility] 5 10:40:02 COVID-19, mRNA, LNP-S, PF, 30 mcg/0.3 mL dose 06/29/2020 completed Not Available [facility] 5 10:40:02 COVID-19, mRNA, LNP-S, PF, 30 mcg/0.3 mL dose 07/27/2020 completed Not Available [facility] 5 10:40:02 Influenza, MDCK, quadrivalent, PF 01/10/2022 completed Not Available [facility] 5 10:40:02 Influenza, MDCK, quadrivalent, PF 01/08/2023 completed Not Available [facility] 5 10:40:02 Influenza, split virus, trivalent, PF 01/28/2024 completed Not Available [facility] 2024 10:40:02 COVID-19, mRNA, LNP-S, PF, 50 mcg/0.5 mL 01/28/2024 completed Not Available [facility] 10:40:02 Past Encounters Encounter ID Performer Location Encounter Start Date Encounter Closed Date Diagnosis/Indication Diagnosis SNOMED-CT Code Diagnosis ICD10 Code Diagnosis IMO Codes Diagnosis Note [id number] Eligio Goldman MD [facility] [address] [facility], [address] [place] [address] 07/07/2020 00:00:00 07/07/2020 14:57:22 [id number] [facility] [place] [address] [place] [address] 07/29/2020 00:00:00 07/29/2020 13:16:36 [id number] MD MARITA GenaoS_[facility] [place] [address] [place] [address] 08/09/2020 00:00:00 08/09/2020 15:24:55 [id number] MD MARITA GenaoS[facility] [place] [address] [place] [address] 10/05/2020 00:00:00 10/05/2020 11:21:25 [id number] Guillermo Bain MD S_[facility] [place] [address] [place] [address] 10/21/2020 00:00:00 10/21/2020 12:25:37 [id number] Guillermo Bain MD [facility] [place] [address] [place] [address] 11/11/2020 00:00:00 11/11/2020 12:29:17 [id number] MD MARITA GenaoS[facility] [place] [address] [place] [address] 12/21/2020 00:00:00 12/21/2020 14:43:24 [id number] MD MARIAT RojasS_[facility]G [facility] [place] [address] [address] 10/25/2021 00:00:00 11/22/2021 13:01:04 [id number] MD MARITA RojasS_GMG Internal Med Jesenia briseno [address] [place] [address] , [facility] [place] [address] 11/30/2021 00:00:00 12/01/2021 12:36:35 [id number] Nicolas Farnsworth MD S_[facility] [address] [place] [address] 12/01/2021 00:00:00 12/01/2021 15:49:55 [id number] MD MARYBEL Pires_[facility] [place] [address] [address] 01/25/2022 00:00:00 01/25/2022 12:20:09 [id number] MD MARYBEL Pires_[facility] [address] [place] [address] 02/20/2022 00:00:00 02/20/2022 15:45:13 [id number] MD MARYBEL Pires[facility] [address] [place] [address] 03/29/2022 00:00:00 03/29/2022 10:23:38 [id number] Hany kay MD S_[facility]G Internal Med [facility] [address] [address] 05/04/2022 00:00:00 05/04/2022 16:23:27 [id number] MD MARITA PiresS_[facility] [place] [address] [address] 05/10/2022 00:00:00 05/12/2022 12:11:51 [id number] Patsy Clarke NP S_[facility] [address] [place] [address] 05/01/2022 00:00:00 05/02/2022 15:44:20 [id number] Patsy Clarke NP [facility] [address] [address] 05/29/2022 11:50:15 05/29/2022 17:43:27 [id number] Doe Baires DPM [facility] Pod[facility] [place] [address] [place] [address] 06/05/2022 15:31:07 06/23/2022 14:30:40 Porokeratosis [id number] Q82.8 multiple bilateral feetEducat ed on AmlactinEd ucated on pumice stoneConti nue supportive shoe gear [place] of toe 75239349 L84 left 4th toeeducate d on conditionr ecommend toe spacerif continues to be problemati c will obtain x-rays Ankle pain 274850890 M25 .579 x-rays negativeob tain ultrasound [id number] Patsy Clarke NP [facility] [address] [address] 06/26/2022 11:58:45 06/26/2022 12:44:38 [id number] Doe Baires DPM [facility] [place] [address] [place] [address] 07/10/2022 15:25:39 07/12/2022 09:18:56 Porokeratosis 148549737 Q82.8 multiple bilateral feetEducat ed on AmlactinEd ucated on pumice stoneConti nue supportive shoe gear Peroneal t endinitis of left lower limb [id number] 60309 M76.72 Rx physical therapyric e therapyfol low-up in 5 weeks [id number] Patsy Clarke NP [facility] [address] [address] 09/25/2022 11:57:00 09/25/2022 12:15:07 [id number] Hany kay MD [facility] [place] [address] [facility] [address] [place] [address] 11/02/2022 15:55:06 11/02/2022 16:52:14 Screening - NAD 399499553 Z13.9 C-scope: in 2017, diagnosed with diverticul itis in [facility], get the report-de ope: 05/09/2016 : Dr Gaines, referred to Dr Hernandez Get yearly flu shotGet tdap if not doneUTD COVID 19 vaccine and boosters RTC in 6 monthDo labsER if worse, he did verbalize his understand ing of the above Hyperlipidemia 84889841 E78.5 On rosuvastat in 10mg dailyGet labs Coronary arteriosclerosis 47038634 I25.10 States that he has not seen cardiology , used to see his PCP only ECHO: [facility] Dr Phelps 11/08/2021 Dr Phelps [facility] 12/13/2021 , f/u in 6 months Pterygium of bilateral eyes 4526817331 84216 H11.003 Has seen the eye MD as per his history 11/02/2022 , and now will need to do cataract surgery Chronic ob structive pulmonary disease 38499314 J44.9 On albuterolO n symbicortN ot on spirivaNot on atroventNo t on singulairS een pulm Dr Bajwa in [facility] States that Dr Farnsworth has tried to change his CPAP settings but these have not yet helped Generalize d anxiety disorder 64143023 F41.1 On alprazolam 1mg q hs PRN Advised to ONLY take as neededNot suicidal or homicidal, declines any referrals to psychiatry OV 11/30/2021 :Today he states that he only takes this for sleep, not for anxiety, will wean off, the xanax, start on trazodone for insomnia OV 05/04/2022 :On lexapro 10mg daily, given by Carolee Pierson eeds to wean off the alprazolam OV 11/02/2022 :On lexapro 10mg daily, not suicidal or homicidalN eeds to see Carolee SANDOVAL Macrocytosis 774931581 D 75.89 Hyperglycemia 48412061 R 73.9 Diet and exerciseNo t on metformin 500mg po bid Stable A1CGet labsDr Baires 07/10/2022 Obstructiv e sleep apnea syndrome 35717252 G47.33 Home sleep study 11/08/2021 : HV See Dr Farnsworth Gastroesop hageal reflux disease without esophagitis 558285932 K21.9 S/p EGD 02/15/2022 On PPI Hypothyroidism 40211874 E03.9 US thyroid 11/01/2022 : mildly prominent thyroid, no nodulesFT4 0.89Will start on low dose levothyrox ine 50mcgs daily, advised how to take this, repeat the labs Allergic rhinitis 646437 04 J30.9 Mild congestion with early am cough, will start on flonase and zyrtec, if not better see ENT [id number] Patsy Clarke NP [facility] [address] [place] [address] 01/11/2023 10:27:13 01/11/2023 10:39:33 [id number] Patsy Clarke NP [facility] [address] [place] [address] 1 04/12/2023 10:24:37 04/12/2023 11:04:17 [id number] Hany kay MD [facility] Internal Med [facility] [address] [place] [address] 1 05/08/2023 10:27:34 05/08/2023 10:58:10 Screening - NAD 132181947 Z13.9 C-scope: in 2017, diagnosed with diverticul itis in [facility], get the reportC-de ope: 05/09/2016 : Dr Gaines, referred to Dr Hernandez Get yearly flu shotGet tdap if not doneUTD COVID 19 vaccine and boostersCa n do shingrix vaccine RTC in 6 monthDo labsER if worse, he did verbalize his understand ing of the above Hyperlipidemia 30097531 E78.5 On rosuvastat in 10mg dailyGet labs Coronary arteriosclerosis 92786158 I25.10 States that he has not seen cardiology , used to see his PCP only ECHO: [facility] Dr Phelps 11/08/2021 Dr Phelps [facility] 12/13/2021 , f/u in 6 months Pterygium of bilateral eyes [id number] 51205 H11.003 Has seen the eye MD as per his history 11/02/2022 , and now will need to do cataract surgery Chronic ob structive pulmonary disease 48467649 J44.9 On albuterolO n symbicortN ot on spirivaNot on atroventNo t on singulairS een pulm Dr Bajwa in [facility] U States that Dr Farnsworth has tried to change his CPAP settings but these have not yet helped Generalize d anxiety disorder 92373916 F41.1 Not on alprazolam 1mg q hs PRN OV 11/30/2021 :Today he states that he only takes this for sleep, not for anxiety, will wean off, the xanax, start on trazodone for insomnia OV 05/04/2022 :On lexapro 10mg daily, given by Carolee henderson to wean off the alprazolam OV 11/02/2022 :On lexapro 10mg daily, not suicidal or homicidalN eeds to see Carolee SANDOVAL OV 05/08/2023 :On lexapro 10mg daily, not suicidal or homicidal and needs to see psychiatry Macrocytosis 774427274 D 75.89 Hyperglycemia 11705118 R 73.9 Diet and exerciseNo t on metformin 500mg po bid Stable A1CGet labsDr Dequan 07/10/2022 Obstructiv e sleep apnea syndrome 31407225 G47.33 Home sleep study 11/08/2021 : [facility] See Dr Farnsworth Gastroesop hageal reflux disease without esophagitis 494468017 K21.9 S/p EGD 02/15/2022 On PPI Hypothyroidism 87167408 E03.9 US thyroid 11/01/2022 : mildly prominent thyroid, no nodulesFT4 0.89On levothyrox ine 50mcgs daily, advised how to take this, repeat the labs Allergic rhinitis 480267 04 J30.9 Mild congestion with early am cough, will start on flonase and zyrtec, if not better see ENT Pain of ri ght shoulder joint 0784785485 3436059 M25.511 Get xray shoulder R side and xray c-spineGet PTStates that he has been doing a lot of weights and working out, advised to not do excessive lifting pulling and pushing till his symptoms are resolved, may need to see ortho [id number] Patsy Clarke NP [facility] [address]43 [facility], [address] [address] 05/14/2023 10:33:43 05/14/2023 11:08:32 [id number] Patsy Clarke NP [facility] 2043 [facility], [address] [address] 08/15/2023 12:47:07 08/15/2023 14:06:27 [id number] Hany kay MD [facility] Internal Med [facility] 2043 [facility], [address] [address] 11/06/2023 09:32:45 11/06/2023 10:02:32 Screening - NAD 602900162 Z13.9 C-scope: in 2017, diagnosed with diverticul itis in [facility], get the reportC-de ope: 05/09/2016 : Dr Gaines, referred to Dr Hernandez Get yearly flu shotGet tdap if not doneUTD COVID 19 vaccine and boostersCa n do shingrix vaccine RTC in 6 monthDo labsER if worse, he did verbalize his understand ing of the above Hyperlipidemia 49102120 E78.5 On rosuvastat in 10mg dailyGet labs Coronary arteriosclerosis 24212071 I25.10 States that he has not seen cardiology , used to see his PCP only ECHO: [facility] Dr Phelps 11/08/2021 Dr Phelps [facility] 12/13/2021 , f/u in 6 monthsDr Phelps [facility] 05/14/2023 : F/u in 6 months Pterygium of bilateral eyes 4556814913 28325 H11.003 Has seen the eye MD as per his history 11/02/2022 , and now will need to do cataract surgery Chronic ob structive pulmonary disease 60396903 J44.9 On albuterolO n symbicortN ot on spirivaNot on atroventNo t on singulairS ees pulm Dr Bajwa in [facility] States that Dr Farnsworth has tried to change his CPAP settings but these have not yet helped Generalize d anxiety disorder 29396238 F41.1 Not on alprazolam 1mg q hs PRN OV 11/30/2021 :Today he states that he only takes this for sleep, not for anxiety, will wean off, the xanax, start on trazodone for insomnia OV 05/04/2022 :On lexapro 10mg daily, given by Carolee Pierson eeds to wean off the alprazolam OV 11/02/2022 :On lexapro 10mg daily, not suicidal or homicidalN eeds to see Carolee Clarke PA OV 05/08/2023 :On lexapro 10mg daily, not suicidal or homicidal and needs to see psychiatry O V0:On lexapro 10mg 1.5 tabs daily, sees EVAN Clarke, not suicidal or homicidal Macrocytosis 714008231 D 75.89 Hyperglycemia 24203498 R 73.9 Diet and exerciseNo t on metformin 500mg po bid Stable A1CGet Bg Baires 07/10/2022 Has seen his eye MD and is now scheduled for another pterygium surgery as per his history 11/06/2023 Obstructiv e sleep apnea syndrome 80046743 G47.33 Home sleep study 11/08/2021 : [facility] 11/06/2023 : [place] does not want to see Dr Farnsworth, states that he will not wear the CPAP, sleeps like a 'baby', the CPAP gives him 'panic attacks' Gastroesop hageal reflux disease without esophagitis 921651035 K21.9 S/p EGD 02/15/2022 On PPI Hypothyroidism 05714716 E03.9 US thyroid 11/01/2022 : mildly prominent thyroid, no nodulesFT4 0.89On levothyrox ine 50mcgs daily, advised how to take this, repeat the labs Allergic rhinitis 626281 04 J30.9 Mild congestion with early am cough, will start on flonase and zyrtec, if not better see ENT Pain of ri ght shoulder joint 7858707663 2625448 M25.511 Get xray shoulder R side and xray c-spineGet PTStates that he has been doing a lot of weights and working out, advised to not do excessive lifting pulling and pushing till his symptoms are resolved, may need to see ortho Xray C-spine: 05/08/2023 States that he is doing very well 11/06/2023 and this issue is now resolved [id number] Patsy Clarke NP [facility] [address] 1 11/13/2023 10:09:50 11/13/2023 10:43:43 [id number] Patsy Clarke NP [facility] [address] [place] [address] 1 02/05/2024 09:49:35 02/05/2024 10:40:55 [id number] Patsy Clarke NP [facility] [address] [place] [address] 1 05/07/2024 10:35:20 05/07/2024 12:15:17 [id number] Hany kay MD [facility] Internal Med [facility] [address] [place] [address] 1 05/13/2024 08:57:00 05/13/2024 09:31:42 Screening - NAD [id number] Z13.9 C-scope: in 2017, diagnosed with diverticul itis in [facility], get the reportC-de ope: 05/09/2016 : Dr Gaines, referred to Dr Hernandez Get yearly flu shotGet tdap if not doneUTD COVID 19 vaccine and boostersCa n do shingrix vaccine RTC in 1 monthDo labsER if worse, he and his did verbalize his understand ing of the above Hyperlipidemia 62397650 E78.5 On rosuvastat in 10mg dailyGet labs Coronary arteriosclerosis 34827494 I25.10 States that he has not seen cardiology , used to see his PCP only ECHO: [facility] Dr Phelps 11/08/2021 Dr Phelps [facility] 12/13/2021 , f/u in 6 monthsDr Phelps [facility] 05/14/2023 : F/u in 6 months Pterygium of bilateral eyes 2718808519 93242 H11.003 Has seen the eye MD as [...] he must see the eye MD today Chronic ob structive pulmonary disease 71370648 J44.9 On albuterolO n symbicortN ot on spirivaNot on atroventNo t on singulairS ees pulm Dr Bajwa in [facility] States that Dr Farnsworth has tried to change his CPAP settings but these have not yet helpedRefe rred 05/13/2024 Generalize d anxiety disorder 44393661 F41.1 Not on alprazolam 1mg q hs PRN OV 11/30/2021 :Today he states that he only takes this for sleep, not for anxiety, will wean off, the xanax, start on trazodone for insomnia OV 05/04/2022 :On lexapro 10mg daily, given by Carolee ragsdaleds to wean off the alprazolam OV 11/02/2022 :On lexapro 10mg daily, not suicidal or homicidalN eeds to see Carolee SANDOVAL OV 05/08/2023 :On lexapro 10mg daily, not suicidal or homicidal and needs to see psychiatry O V0 4:On lexapro 10mg 1.5 tabs daily, sees EVAN Clarke, not suicidal or homicidal O V0 5:On lexaproSee s EVAN Clarke Macrocytosis 326771669 D 75.89 Hyperglycemia 31936913 R 73.9 Diet and exerciseNo t on metformin 500mg po bid Stable A1CGet Bg Baires 07/10/2022 Has seen his eye MD and is now scheduled for another pterygium surgery but Dr Burr has not yet contacted him Obstructiv e sleep apnea syndrome 76539366 G47.33 Home sleep study 11/08/2021 : [facility] 11/06/2023 : Sees Dr Bajwa his pulm in [facility], does not want to see Dr Farnsworth, states that he will not wear the CPAP, sleeps like a 'baby', the CPAP gives him 'panic attacks' Gastroesop hageal reflux disease without esophagitis 229519345 K21.9 S/p EGD 02/15/2022 On PPI Hypothyroidism 39446139 E03.9 thyroid 11/01/2022 : mildly prominent thyroid, no nodulesFT4 0.89On levothyrox ine 50mcgs daily, advised how to take this, repeat the labs Allergic rhinitis 432293 04 J30.9 Mild congestion with early am cough, will start on flonase and zyrtec, if not better see ENT Headache 53787567 R51.9 None now, states that he thought it was from his dental caries, now is being treated with an antibiotic , last headache was a week agoNot worst headache of his life, no N/V, no dizziness, no dysarthria or diplopiaHa s also noted L eye pain, he will now be seen by eye MD today, has declined any referral to the [facility] CT head, he may need to see neurology [id number] Hany kay MD [facility] Internal Med [address] [facility], [address] [place] [address] 06/05/2024 09:05:39 06/05/2024 09:52:05 Screening - NAD 479528313 Z13.9 C-scope: in 2017, diagnosed with diverticul itis in [facility], get the report-de ope: 05/09/2016 : Dr Gaines, referred to Dr Hernandez Get yearly flu shotGet tdap if not doneUTD COVID 19 vaccine and boostersCa n do shingrix vaccine RTC in 3 monthDo labsER if worse, he and his did verbalize his understand ing of the above Hyperlipidemia 62543235 E78.5 On rosuvastat in 10mg dailyGet labs Coronary arteriosclerosis 85144995 I25.10 States that he has not seen cardiology , used to see his PCP only ECHO: [facility] Dr Phelps 11/08/2021 Dr Phelps [facility] 12/13/2021 , f/u in 6 monthsDr Phelps [facility] 05/14/2023 : F/u in 6 monthsRefe [facility]red to [facility]t his insurance Pterygium of bilateral eyes 5884676925 96080 H11.003 Has seen the eye MD as [...] eye MD Chronic ob structive pulmonary disease 93700445 J44.9 On albuterolO n symbicortN ot on spirivaNot on atroventNo t on singulairS ees pulm Dr Bajwa in [facility] States that Dr Farnsworth has tried to change his CPAP settings but these have not yet helpedRefe rred 05/13/2024 Generalize d anxiety disorder 05795425 F41.1 Not on alprazolam 1mg q hs PRN OV 11/30/2021 :Today he states that he only takes this for sleep, not for anxiety, will wean off, the xanax, start on trazodone for insomnia OV 05/04/2022 :On lexapro 10mg daily, given by Carolee ragsdaleds to wean off the alprazolam OV 11/02/2022 :On lexapro 10mg daily, not suicidal or homicidalN eeds to see Carolee SANDOVAL OV 05/08/2023 :On lexapro 10mg daily, not suicidal or homicidal and needs to see psychiatry O V0 4:On lexapro 10mg 1.5 tabs daily, sees EVAN Clarke, not suicidal or homicidal O V0 5:On lexaproSee s EVAN Clarke OV 06/05/2024 :On lexapro, does well on this dose, sees psychiatry at [facility] Macrocytosis 697127806 D 75.89 Hyperglycemia 14512757 R 73.9 Diet and exerciseNo t on metformin 500mg po bid Stable A1CGet Bg Baires 07/10/2022 Has seen his eye MD and is now scheduled for another pterygium surgery but Dr Burr has not yet contacted him Today 06/05/2024 : States that he did see eye MD and was told that his pterygium is not the cause of his headache, he denies any headaches today Obstructiv e sleep apnea syndrome 14549351 G47.33 Home sleep study 11/08/2021 : [facility] 11/06/2023 : Se[place], does not want to see Dr Farnsworth, states that he will not wear the CPAP, sleeps like a 'baby', the CPAP gives him 'panic attacks' Gastroesop hageal reflux disease without esophagitis 356425083 K21.9 S/p EGD 02/15/2022 On PPI Hypothyroidism 01096437 E03.9 US thyroid 11/01/2022 : mildly prominent thyroid, no nodulesFT4 0.89On levothyrox ine 50mcgs daily, advised how to take this, repeat the labs Allergic rhinitis 581899 04 J30.9 Mild congestion with early am cough, will start on flonase and zyrtec, if not better see ENT Headache 77002840 R51.9 None now, states that he thought it was from his dental caries, now is being treated with an antibiotic , last headache was a week agoNot worst headache of his life, no N/V, no dizziness, no dysarthria or diplopiaHa s also noted L eye pain, he will now be seen by eye MD today, has declined any referral to the [facility] get CT head, he may need to see neurology CT Head 05/15/2024 : NegToday 06/05/2024 , states that he does not have any headache or any complaints Liver enzy mes level above reference range 341167616 R74.01 Get liver, hepatitis panel and GGT [id number] Meena Ramos MD [facility] General Surgery [address] [place] [address] 09/10/2024 11:00:06 09/10/2024 11:38:31 Liver function test above reference range 081198201 R79.89 [id number] Hany kay MD [facility] Internal Med [place] [address] [place] [address] 09/04/2024 10:02:25 09/04/2024 11:10:22 Screening - NAD 786963008 Z13.9 C-scope: in 2017, diagnosed with diverticul itis in [facility], get the [facility]-de ope: 05/09/2016 : Dr Gaines, referred to Dr Hernandez Get yearly flu shotGet tdap if not doneUTD COVID 19 vaccine and boostersCa n do shingrix vaccine RTC in 3 monthDo labsER if worse, he and his did verbalize his understand ing of the above Hyperlipidemia 65437038 E78.5 On rosuvastat in 10mg dailyGet labs Coronary arteriosclerosis 17189960 I25.10 States that he has not seen cardiology , used to see his PCP only ECHO: [facility] Dr Phelps 11/08/2021 Dr Phelps [facility] 12/13/2021 , f/u in 6 [address] Lenin [facility] 05/14/2023 : F/u in [facility]Re[facility] Pterygium of bilateral eyes [id number] 39527 H11.003 Has seen the eye MD as [...] eye MD Chronic ob structive pulmonary disease 75240548 J44.9 On albuterolO n symbicortN ot on spirivaNot on atroventNo t on singulairS ees pulm Dr Bajwa in [facility] States that Dr Farnsworth has tried to change his CPAP settings but these have not yet helpedRefe rred 05/13/2024 Generalize d anxiety disorder 03331447 F41.1 Not on alprazolam 1mg q hs PRN On lexapro 10mg 1.5tabs, does well on this dose, sees psychiatry at [facility] Macrocytosis 100457507 D 75.89 Hyperglycemia 39102142 R 73.9 Diet and exerciseNo t on [...] headaches today Obstructiv e sleep apnea syndrome 49478792 G47.33 Home sleep study 11/08/2021 : [facility] 11/06/2023 : Se[place], does not want to see Dr Farnsworth, states that he will not wear the CPAP, sleeps like a 'baby', the CPAP gives him 'panic attacks' Gastroesop hageal reflux disease without esophagitis 082717502 K21.9 S/p EGD 02/15/2022 On PPI Hypothyroidism 80654183 E03.9 US thyroid 11/01/2022 : mildly prominent thyroid, no nodulesFT4 0.89On levothyrox ine 50mcgs daily, advised how to take this, repeat the labs Allergic rhinitis 378569 04 J30.9 Mild congestion with early am cough, will start on flonase and zyrtec, if not better see ENT Headache 31360721 R51.9 None now, states that he thought it was from his dental caries, now is being treated with an antibiotic , last headache was a week agoNot worst headache of his life, no N/V, no dizziness, no dysarthria or diplopiaHa s also noted L eye pain, he will now be seen by eye MD today, has declined any referral to the [facility] CT head, he may need to see neurology CT Head 05/15/2024 : NegToday 06/05/2024 , states that he does not have any headache or any complaints Liver enzy mes level above reference range 779229247 R74.01 US Liver: Mild hepatomega ly 06/18/2024 GGT/Hep panel: Neg 09/01/2024 See GI referred again 09/04/2024 Hyperkalemia 59191611 E8 7.5 9805 Repeat the K Pain of elbow region 743 86120 M25.522 [id number] Will refer to ortho [id number] Zachary Templeton MD [facility] [place] [address] [place] [address] 09/17/2024 08:38:40 09/17/2024 09:56:49 Pain of elbow region 67082475 M25.522 [id number] Patsy Clarke NP [facility] 2043 [facility], [address] [place], [place] [address] 11/10/2024 12:32:15 11/10/2024 14:03:04 [id number] Hany kay MD [facility] Internal Med [facility] [address] [facility], [address] [place] [address] 12/16/2024 10:38:52 12/16/2024 11:37:58 Screening - NAD [id number] Z13.9 C-scope: in 2017, diagnosed with diverticul itis in [facility], get the report-de ope: 05/09/2016 : Dr Gaines, referred to Dr Black ed 12/16/2024 Get yearly flu shotGet tdap if not doneUTD COVID 19 vaccine and boostersCa n do shingrix vaccine RTC in 4 monthsDo labsER if worse, he and his did verbalize his understand ing of the above Hyperlipidemia 83463735 E78.5 On rosuvastat in 10mg dailyGet labs Coronary arteriosclerosis 68184486 I25.10 States that he has not seen cardiology , used to see his PCP only ECHO: [facility] Dr Phelps 11/08/2021 Dr Phelps [facility] 12/13/2021 , f/u in 6 monthsDr Lenin [facility] 05/14/2023 : F/u in 6 monthsDr Keith Norman 07/18/2024 Pterygium of bilateral eyes [id number] 75804 H11.003 Has seen the eye MD as [...] eye MD Chronic ob structive pulmonary disease 56703700 J44.9 On albuterolO n symbicortN ot on spirivaNot on atroventNo t on singulairS ees pulm Dr Bajwa in [facility] States that Dr Farnsworth has tried to change his CPAP settings but these have not yet helpedSees Dr Bajwa in 03/2025 Generalize d anxiety disorder [id number] F41.1 Not on alprazolam 1mg q hs PRN On lexapro 10mg 1.5tabs, does well on this dose, sees psychiatry at [facility] Macrocytosis 061008572 D 75.89 Hyperglycemia 69097103 R 73.9 Diet and exerciseNo t on metformin 500mg po bid Stable A1CGet labsDr Baires 07/10/2022 Has seen his eye MD and is now scheduled for another pterygium surgery but Dr Burr has not yet contacted him Today 06/05/2024 : States that he did see eye MD and was told that his pterygium is not the cause of his headache, he denies any headaches today Obstructiv e sleep apnea syndrome 54026461 G47.33 Home sleep study 11/08/2021 : [facility] 11/06/2023 : Sees Dr Bajwa his pulm in [facility], does not want to see Dr Farnsworth, states that he will not wear the CPAP, sleeps like a 'baby', the CPAP gives him 'panic attacks' Gastroesop hageal reflux disease without esophagitis 786618157 K21.9 S/p EGD 02/15/2022 On PPI Hypothyroidism 75690888 E03.9 thyroid 11/01/2022 : mildly prominent thyroid, no nodulesFT4 0.89On levothyrox ine 50mcgs daily, advised how to take this, repeat the labs Allergic rhinitis 559185 04 J30.9 Mild congestion with early am cough, will start on flonase and zyrtec, if not better see ENT Headache 21041757 R51.9 None now, states that he thought it was from his dental caries, now is being treated with an antibiotic , last headache was a week agoNot worst headache of his life, no N/V, no dizziness, no dysarthria or diplopiaHa s also noted L eye pain, he will now be seen by eye MD today, has declined any referral to the ERWill get CT head, he may need to see neurology CT Head 05/15/2024 : Neg//2 025, states that he does not have any headache or any complaints Liver enzy mes level above reference range 495775562 R74.01 US Liver: Mild hepatomega ly 06/18/2024 GGT/Hep panel: Neg 09/01/2024 See GI referred again 09/04/2024 Dr Ramos 09/10/2024 Pain of elbow region 743 31832 M25.522 [id number] Will refer to ortho Elaine Rogers NP ortho 09/17/2024 , treated with meloxicamX R elbow 09/17/2024 Screening for malignant neoplasm of colon 637249624 Z12.11 [id number] Pain of le ft shoulder joint [id number] 5724859 M25.512 [id number] Get a referral to ortho [id number] Zachary Templeton MD [facility] [place] [place] [address] [place] [address] 12/24/2024 08:59:08 12/24/2024 09:27:31 Pain of left shoulder region 3820121875 M25.512 [id number] Zachary Templeton MD [facility] [place] [place] [address] [place] [address] 01/26/2025 14:31:10 01/26/2025 15:16:32 Pain of left shoulder region 7028789056 M25.512 [id number] Patsy Clarke NP [facility] [address] [address] 02/02/2025 10:04:48 02/02/2025 10:19:25 Health Concerns Section Related Observation LastModified by Organization Detai ls LastModified Time None Recorded Concern Status LastModified by Organization Details LastModified Time None Recorded Advance Directives Directive N: Payers Insurance Date Sequence Insurance Name Policy Number Policy Pinto Covered Member ID Pinto Member ID Guarantor Name 02/04/2025 1 [facility] ON OR AFTER 09/23/20 (MEDICAID REPLACEMENT - HMO) Vishal Curry [id number] Vishal Curry 02/04/2025 2 [place] Vishal Curry [id number] Vishal Curry 02/04/2025 2 [place] [facility] PUBLIC AID Vishal Curry [id number] Vishal Curry Notes Date Note Type Note Provider Name and Address Organization Details Recorded Time 09/10/2024 text/html ROS as noted in the HPI PT WAS SEEN NI THE OFFICE TODAY FOE ELEVATED LFTs . PT ADMITS /DENIES ETOH ABUSE / TATTOO/ IVDA / DM-2/ OBESITY./ HEPATITIS . PT HAS LIPID ISSUES AND IS TAKING STATINS. LABS : AST 88, ALT 28, ALK PHOS 57, BUN /CR 12/ 1.1, HB 14.8, MCV 101.4, RUQ U/S, : MILD HEPATOMEGALY , STEATOSIS. PT HAS NO COMPLAINTS . Meena Ramos MD [address] [place] [address], [facility] [address], [place], [address], [facility] 09/10/2024 11:53:05 12/16/2024 text/html Here to establish carePast Hx:AnxietyHLDCOPDRev iewed social family and surgical historyDiscuss above and get labsHere with his wifeDoes well OV 11/30/2021:Here for his f/u aptHe does wellHe is here with his , diagnosed with a pneumonia and now doing very wellHe did do the labsHe would like to wean off the xanax OV 05/04/2022:Here for his f/u apt, he did do the labs on 05/01/2022 OV 11/02/2022: Here for his f/u apt, he does well, has noted a slight cough, non productive, no fevers or chills, no blood in sputum OV 05/08/2023: Here for his routine apt, he is dong well today, does have some R shoulder pain, he has been working out in the gym, no N/T or weakness in the R UE, in the past he was told he may have arthritis in the neck and was seeing a chiropractor, here with his OV 11/06/2023: Here for his routine apt, he is here with his , does well, he did do the labs OV 05/13/2024: Here for his f/u apt, he feels well today, has noted some headaches, he is here with his OV 06/05/2024: Here for his routine apt, he is doing well today, he is here with his OV 09/04/2024: Here for his f/u apt, he feels well, states that he did see the photo booth operator and was told he now has to be seen only once a year, he did do the labsHe also has done his labsHas noted L elbow pain, he is LHD and states that it can cause some N/T in the L hand, good vp talent management, 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
--- OUTSIDE RECORDS SUMMARY | 2025-03-23 09:13 | XMS_ITS | Continuity of Care Document ---
Author Organization [place] - [facility] [employer], [facility] Ezra Anderson Address [address] [place] [address] Assessment Encounter Date Assessment Date Assessment LastModified by Organization Details LastModified Time 01/26/2025 01/26/2025 59-year-old male presents for follow-up [...] positive Carol,, positive Neer and Frey, positive [place] Given his persistent symptoms and worsening symptoms currently rated 10/10, proceed with cortisone injection as previously discussed. He tolerated that well. We will have him pause PT for now and also order MRI for the shoulder given his failure of improvement with conservative management. We will see him back after the scan. He is in agreement with plan. [email or web address] Not available 01/26/2025 16:24:52 Plan of Treatment Reminders Order Date Submit Date Provider Last Modified By Organization Details Last Modified Time Details Appointments Any 15 2025 09:30A M Hany rod MD Not available Not available Not available Follow Up 2025 09:00A M Patsy Clarke NP Not available Not available Not available Lab None recorded. Referral None recorded. Procedures injection /aspirati on joint/bur sa (PROC) 2024 025 [email or web address] 1 In-Office Order, Internal Use Only DO Not Attach Compendium DO Not Attach Compendium, Do Not Delete/merge, [id number] 01/26/2025 15:11:00 Surgeries None recorded. Imaging MRI, shoulder, w/o contrast - Please provide pt with disc of images to bring to appointme nt. 2024 [facility], [address], [place], [address], 03/23/2025 09:48:27 Medication Orders bupivacai ne HCl 0.5 % (5 mg/mL) injection solution [address] [id number], [address] [place], [place], [id number], 01/26/2025 16:43:59 triamcino lone acetonide 40 mg/mL suspensio n for injection [address] [id number], [address] [place], [place], [id number], 01/26/2025 16:43:59 Patient TargetsNo targets recorded. Patient InstructionsNo instructions recorded. Reason for Referral None Reported. Problems Name Problem SNOMED Code Status Onset Date Resolution Date Notes Provider Name and Address Organization Details Recorded Time Ankle pain 966138075 Active Not Available [facility] 3 14:11:16 Foot callus 339017198 Active Not Available [facility] 3 14:11:16 Granulomat ous disorder 760603235 Active 2018 Not Available [facility] 3 14:11:15 Dyspnea on exertion 62892952 Active 2018 Not Available [facility] 3 14:11:16 Hyperglyce miguel ángel 83814364 Active 2021 Hany kay MD [address], [place], [address] , [facility] [employer] [facility] 5 08:59:28 Generalize d anxiety disorder 03070203 Active 2022 Hany kay MD [address], [address], [place], [address] , [employer] [facility] [employer] [facility] 5 08:59:28 Porokerato sis 922186146 Active 2022 Not Available [facility] 3 14:11:16 Glidden of toe 89606069 Active 2022 Not Available [facility] 3 14:11:16 Ankle pain 211700552 Active 2022 Not Available [facility] 3 14:11:16 Peroneal tendinitis of left lower limb 0523173142191 07 Active 2022 Not Available [facility] 3 14:11:16 Toothache 62284274 Active 2022 Savi mon, [employer] [facility] [employer] [facility] 3 18:16:21 Upper respirator y infection 56087543 Active 2022 Dominga mon, [employer] [facility] [employer] [facility] 3 14:44:33 Hypothyroi dism 48769853 Active 2022 Hany kay MD [address], [address], [place], [address] , [employer] [facility] [employer] [facility] 5 08:59:28 Hyperlipid emia 39555072 Active 2022 Hany kay MD [address], [address], [place], [address] , [employer] [facility] [employer] [facility] 5 08:59:27 Coronary arterioscl erosis 23745673 Active 2022 Hany kay MD [address], [address], [place], [address] , [employer] [facility] [employer] [facility] 5 11:24:12 Pterygium of bilateral eyes 6282292161423 04 Active 2022 Hany kay MD [address], [address], [place], [address] , [facility] 5 08:59:27 Chronic obstructiv e pulmonary disease 18954235 Active 2022 Hany kay MD [address], [address], [place], [address] , [facility] 5 11:25:00 Macrocytos is 926944170 Active 2022 Hany kay MD [address], [address], [place], [address] , [facility] 5 08:59:28 Obstructiv e sleep apnea syndrome 57174242 Active 2022 Hany kay MD [address], [address], [place], [address] , [facility] 5 08:59:28 Gastroesop hageal reflux disease without esophagiti s 181084531 Active 2022 Hany kay MD [address], [address], [place], [address] , [facility] 5 08:59:28 Allergic rhinitis 09304211 Active 2022 Hany kay MD [address], [address], [place], [address] , [facility] 5 08:59:28 Red blood cell count outside reference range 260031904 Active 2023 Saira Contreras RN null, [place] [facility] 4 11:03:58 Acute sinusitis 53113165 Active 2023 Saira Contreras RN null, [place] [facility] 4 11:47:03 Pain of right shoulder joint 2011593267012 9100 Active 2023 Hany kay MD [address], [address], [place], [address] , [place] [facility] 4 10:55:35 Infection of tooth 379882001 Active 2023 Stefan Gutierrez CMA null, [place] [facility] 4 10:39:51 Headache 06699134 Active 2024 Hany kay MD [address], [address], [place], [address] , [place] [facility] 5 09:01:43 Liver enzymes level above reference range 015223335 Active 2024 Hany kay MD [address], [address], [place], [address] , [facility] 5 09:04:05 Pain of left shoulder region Active 2024 JUDE Britton null, [place] [facility] 5 14:33:46 Hyperkalem ia 84350857 Active 2024 Hany kay MD [address], [address], [place], [address] , [facility] 5 10:29:48 Pain of elbow region 77119046 Active 2024 Hany kay MD [address], [address], [place], [address] , [facility] 5 11:06:57 Liver function test above reference range 195173636 Active 2024 Meena Ramos MD [address], [address], [place], [address] , [place] [facility] 5 11:06:37 Pain of left shoulder joint 3583252232151 9109 Active 2024 Hany kay MD [address], [address], [place], [address] , [place] [facility] 5 11:30:23 Notes:Medical History: Anxie ty/Depression Bilateral tinnitus Rhinosinusitis Early REM onset Obesity with mod OSAHS, AHI = 29, 11/08/21, on CPAP c/o [facility] Mild LVE EF 55% Mild [...] Cortisone Injection completed Zachary Templeton MD [address], [place], [address], [employer] 01/26/2025 16:25:44 07/11/19 23 Callus Debridement 2-4 completed Doe Baires DPM [address], [place], [address], [employer] 07/11/2022 13:56:46 06/06/19 23 Callus Debridement 2-4 completed Doe Baires DPM [address], [place], [address], [employer] 06/22/2022 13:37:03 09/25/19 21 SEPTOPLASTY (SURG) completed Not Available [facility] 05/24/2022 05:03:05 09/25/19 21 SEPTOPLASTY (SURG) completed Not Available [facility] 05/24/2022 05:03:05 Unlisted px meckel's dvrtclm completed Not Available [facility] 05/24/2022 04:42:13 thumb surgery completed Not Available [facility] 05/24/2022 04:42:13 Imaging Results None recorded. Procedure Notes None recorded. Medical Equipment None Reported. Allergies Allergen ID Allergen Name Allergen Category Reaction Reaction Severity Criticality Documentation Date Start Date Code Code System Note Provider Name and Address Organization Details Recorded Time 32023 Dilaudid medicatio n Not available Not available Not available 09/17/2024 71151 3 RxNorm JUDE Britton null, [place] [facility] 5 08:56:47 80624 [employer] ramiro medicatio n other Not available low 03/16/2025 3423 RxNorm React ion: OTHER , React ion: Other Not Available [facility] - External Data Service - prod 5 [...] Updated DateTime 01/26/2025 165.1 cm 27.8 kg/m2 25509.93 g 10 JUDE Britton [place] - [employer] 01/26/2025 14:32:47 Social History Question Answer Notes LastModified by Organizat ion Details LastModified Time Tobacco Smoking Status Former Smoker quit 2011 MUSTAPHA Moreno elieser, [place] [facility] 05/08/2023 10:28:06 Do You Have An Advance Directive? No [id number] Information not available 05/24/2022 What Is Your Level Of Caffeine Consumption? Moderate [id number] Information not available 05/24/2022 In The 14 Days Before Symptom Onset, Have You Had Close Contact With A Laboratory-confi rmed COVID-19 While That Case Was Ill? No Information not available 05/08/2023 In The 14 Days Before Symptom Onset, Have You Had Close Contact With A Person Who Is Under Investigation For COVID-19 While That Person Was Ill? No [email or web address] Information not available 05/08/2023 What Type Of Diet Are You Following? REGULAR [id number] Information not available 05/24/2022 Which Illicit Or Recreational Drugs Have You Used? Marijuana [email or web address] Information not available 05/08/2023 What Is The Highest Grade Or Level Of School You Have Completed Or The Highest Degree You Have Received? [id number] [email or web address] Information not available 05/08/2023 Do You Have An Electrostatic Air Filter? No Information not available 05/08/2023 Have There Been Any Changes To Your Family Or Social Situation? No [email or web address] Information not available 05/08/2023 What Is The Fluoride Status Of Your Home? Unknown [email or web address] Information not available 05/08/2023 When Did You Quit Smoking? 6-10yearssincelast cigarette [email or web address] Information not available 05/08/2023 Are There Any Guns Present In Your Home? Yes [email or web address] Information not available 05/08/2023 Do You Have A Humidifier? No [email or web address] Information not available 05/08/2023 Do You Use Insect Repellent Routinely? Yes Information not available 05/08/2023 Where Do You Live? [facility] [email or web address] Information not available 05/08/2023 Do You Have A Medical Power Of Face Boss? No [email or web address] Information not available 05/08/2023 Do You Have Moisture Problems In Your Home? No [email or web address] Information not available 05/08/2023 What Was The Date Of Your Most Recent Tobacco Screening? 12/24/2024 [email or web address] Information not available 12/24/2024 Have You Ever Been Counseled For Unhealthy Alcohol Use? No [email or web address] Information not available 05/08/2023 Do You Have Any Pets? Yes [email or web address] Information not available 05/08/2023 What Is Your Relationship Status? MIGRATION.[id number] Information not available 05/24/2022 Do You Use Your Seat Belt Or Car Seat Routinely? Yes [email or web address] Information not available 05/08/2023 Do You Have Smoke And Carbon Monoxide Detectors In Your Home? Yes [email or web address] Information not available 05/08/2023 Are You Passively Exposed To Smoke? Yes [email or web address] Information not available 05/08/2023 Are There Any Smokers In Your House? Yes Information not available 05/08/2023 What Types Of Sporting Activities Do You Participate In? None [email or web address] Information not available 05/08/2023 Do You Use Sunscreen Routinely? Yes [email or web address] Information not available 05/08/2023 Has Tobacco Cessation Counseling Been Provided? No [email or web address] Information not available 05/08/2023 Have You Recently Traveled Abroad? No [email or web address] Information not available 05/08/2023 Have You Used IV Drugs? No [email or web address] Information not available 05/08/2023 Do You Have Any Dietary Restrictions? No [email or web address] Information not available 05/08/2023 Sex: Male Functional Status Question Answer Note LastModified by Organizat ion Details LastModified Time Do you use any illicit or recreational drugs? Yes [email or web address] Information not available 05/08/2023 Do you or have you ever used any other forms of tobacco or nicotine? No [email or web address] Information not available 05/08/2023 What is your level of alcohol consumption? Occasional [id number] Information not available 05/24/2022 Are you currently employed? No Disability [email or web address] Information not available 09/04/2024 What is your exercise level? None stays active MIGRATION.98722 [id number] Information not available 05/24/2022 Mental Status Question Answer Note LastModified by Organization D etails LastModified Time Do you feel stressed (tense, restless, nervous, or anxious, or unable to sleep at night)? [id number] Information not available 05/08/2023 Family History Relationship Description Onset Age of this Age Resolved Age Notes LastModified by Organization Details LastModified Time Father Diabetes mellitus [id number] [id number] Not available 05/24/2022 04:42:18 Mother Hyperlipidem ia [email or web address] Not available 01/26 14:31:49 Brother Diabetes mellitus [id number].596 [id number] Not available 05/24/2022 04:42:18 Medical History Condition Response USE OF BLOOD THINNERS N NO SIGNIFICANT PAST MEDICAL HISTORY N SLEEP APNEA N MRSA N DIABETES, TYPE N ALLERGIES/HAYFEVER N ENT N PARATHYROID DISEASE N LUNG DISEASE/DISORDER Y SEASONAL ALLERGIES Y INSOMNIA N HEARTBURN / REFLUX N COPD N RADIATION / CHEMOTHERAPY N HIGH CHOLESTEROL / HYPERLIPIDEMIA Y HYPERTHYROIDISM N BLOOD DISEASES N EAR OR HEARING PROBLEMS N HEPATITIS / LIVER DISEASE N HYPOTHYROIDISM N SLEEP DISORDER N DEPRESSION (INCLUDING POST ) N STROKE/TIA N ULCERS N SEIZURES/EPILEPSY N HEADACHES/MIGRAINES Y CHF N PACEMAKER N DIZZINESS N HEART DISEASE/HEART PROBLEMS N AIDS/HIV N FRACTURES N HYPERTENSION N CANCER: SPECIFY N TOURETTE'S N OBESITY N BLOOD TRANSFUSION N ANESTHESIA COMPLICATIONS N ANEMIA/BLOOD DISORDER N HISTORY WITH COMPLICATIONS WITH ANESTHES IA ? N ANEURYSM N CHRONIC EAR INFECTIONS N TUBERCULOSIS N Immunizations Vaccine Type Date Status Note Provider Nam e and Address Organization Details Recorded Time Influenza, MDCK, quadrivalent, PF 01/05/2020 completed Not Available [facility] 5 10:40:02 COVID-19, mRNA, LNP-S, PF, 30 mcg/0.3 mL dose 06/29/2020 completed Not Available [facility] 5 10:40:02 COVID-19, mRNA, LNP-S, PF, 30 mcg/0.3 mL dose 07/27/2020 completed Not Available [facility] 5 10:40:02 Influenza, MDCK, quadrivalent, PF 01/10/2022 completed Not Available [facility] 10:40:02 Influenza, MDCK, quadrivalent, PF 01/08/2023 completed Not Available [facility] 10:40:02 Influenza, split virus, trivalent, PF 01/28/2024 completed Not Available [facility] 2024 10:40:02 COVID-19, mRNA, LNP-S, PF, 50 mcg/0.5 mL 01/28/2024 completed Not Available [facility] 10:40:02 Past Encounters Encounter ID Performer Location Encounter Start Date Encounter Closed Date Diagnosis/Indication Diagnosis SNOMED-CT Code Diagnosis ICD10 Code Diagnosis IMO Codes Diagnosis Note [id number] Zachary Templeton MD [facility] [address] [place] [address] 01/26/2025 14:31:10 01/26/2025 15:16:32 Pain of left shoulder region 1572146929 M25.512 61591136 Health Concerns Section Related Observation LastModified by Organization Detai ls LastModified Time None Recorded Concern Status LastModified by Organization Details LastModified Time None Recorded Payers Encounter Date Sequence Insurance Name Policy Number Policy Pinto Covered Member ID Pinto Member ID Guarantor Name 01/26/2025 1 [facility] ON OR AFTER 09/23/20 (MEDICAID REPLACEMENT - HMO) Vishal Curry [id number] Vishal Curry
--- OUTSIDE RECORDS SUMMARY | 2025-03-23 09:13 | XMS_ITS | Encounter Summary ---
Author Organization [facility] Address [address] [place] [address] Phone Care Team Providers Care Night Court Magistrate Name Role Phone Oscar Buenrostro MD Primary Care Provider [phone] Lida Mckeon MD Primary Care Provide r Fely Johnson RN Unavailable Unavailabl e Encounter Details Date Type Department Care Team (Latest Contact Info) Description 05/02/2019 Orders Only [facility] Scanning, Provider Social History Tobacco Use Types Packs/Day Years Used Date Smoking Tobacco: Never Assessed Sex and Gender Information Value Date Recorded Sex Assigned at Not on file Legal Sex Male 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
--- OUTSIDE RECORDS SUMMARY | 2025-03-23 09:13 | XMS_ITS | Clinical Summary ---
Author Organization [facility] Address [address] [place] [address] Care Team Providers Care Marble Carver Name Role Phone Hany Mckeon MD Primary [...] daily. 5 Active Lancets (OneTouch Delica Plus Naoerg39I) Misc test twice daily 5 Active ibuprofen [...] Medical Group - Cardiology - Greg [address] [place] [phone] Cari Cole APRN, SOIL CONSERVATION AIDE [address] [place] [address] Health Maintenance Due Date Last Done Comments Hepatitis C Virus (HCV) Screening 1965 TdaP Immunization 1965 Hepatitis B Immunization (1 of 3 - 19+ 3-dose series) 08/07/1986 Pneumococcal Immunization (50+ years) (1 of 2 - PCV) 08/07/1986 Cologuard 08/07/2012 Colonoscopy 08/07/2012 Colorectal Cancer Screening 08/07/2012 Immunochemical Fecal Occult Blood 08/07/2012 Respiratory Syncytial Virus (RSV) Immunization (Adult) (1 - Risk 50-74 years 1-dose series) 08/07/2017 Zoster Immunization (1 of 2) 08/07/2017 PSA Discussion 08/07/2022 Influenza Immunization (#1) 11/24/202406/2023, 01/08/2023, 01/10/2022, Additional history exists SARS-COV-2 Immunization ( season) 2024 01/28/2024, 07/27/2020, 06/29/2020 Human Papillomavirus (HPV) Immunization (No Doses Required) Completed Meningococcal Immunization (ACWY) Aged Out No longer eligible based on patient's age to complete this topic Rotavirus Immunization Aged Out No lo nger eligible based on patient's age to complete this topic Insurance MEDICAID [employer] Care Teams Marble Carver Relationship Specialty Start Date End Date Hany Mckeon MD [address] [facility] [place] [address] PCP - General Internal Medicine 06/25/24
--- OUTSIDE RECORDS SUMMARY | 2025-03-23 09:13 | XMS_ITS | Clinical Summary ---
Author Organization [facility] Address [address] [place] [address] Care Team Providers Care Tire Servicer Name Role Phone Lida Mckeon MD Primary [...] route as directed for 14 days. Active multivitamin tablet Take 1 tablet by mouth daily Active ibuprofen (ADVIL,MOTRIN) 800 mg tablet Take 1 tablet (800 mg total) by mouth every 12 (twelve) hours for 10 days 5 Active famotidine (PEPCID) 20 mg tablet Take 1 tablet (20 mg total) by mouth 2 (two) times a day for 30 days, THEN 1 tablet (20 mg total) daily. 90 tablet 5 5 Active albuterol HFA (ProAir HFA) 90 mcg/actuation inhaler Inhale 2 puffs every 6 (six) hours as needed for wheezing or shortness of breath 8.5 g 5 5 Active budesonide-for moteroL (SYMBICORT) 160-4.5 mcg/actuation inhaler Inhale 2 puffs 2 (two) times a day Rinse mouth with water after use. Do not swallow. 1 each 5 5 Active budesonide-for moteroL (SYMBICORT) 160-4.5 mcg/actuation inhaler Inhale 2 puffs 2 (two) times a day Rinse mouth with water after use. Do not swallow. 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 Gender Identity Not on file Sexual Orientation Not on file Last Filed Vital Signs Vital Sign Reading Time Taken Comments Blood Pressure 107/69 04/23/2024 7:42 AM NATIONAL SALES REPRESENTATIVE Pulse 73 04/23/2024 7:42 AM NATIONAL SALES REPRESENTATIVE Temperature 36.7 C (98.1 F) 04/23/2024 7:42 AM NATIONAL SALES REPRESENTATIVE Respiratory Rate 20 04/17/2023 1:11 PM NATIONAL SALES REPRESENTATIVE Oxygen Saturation 99% 04/23/2024 7:42 AM NATIONAL SALES REPRESENTATIVE Inhaled Oxygen Concentration - - Weight 77.6 kg (171 lb) 04/23/2024 7:42 AM NATIONAL SALES REPRESENTATIVE Height 170.9 cm (5' 7.3) 04/23/2024 7:42 AM NATIONAL SALES REPRESENTATIVE Body Mass Index 26.54 04/23/2024 7:42 AM NATIONAL SALES REPRESENTATIVE Plan of Treatment Health Maintenance Due Date [...] Most Recently Relevant to Health Maintenance [facility] Care Teams Tire Servicer Relationship Specialty Start Date End Date Lida Mckeon MD [address] [id number] PCP - General Internal Medicine 04/18/22 Fely Johnson RN Registered Nurse Pulmonary Disease 04/18/22
--- OUTSIDE RECORDS SUMMARY | 2025-03-23 09:13 | XMS_ITS | Clinical Summary ---
Author Organization [facility] Address [address] [place] [address] [place] [address] Care Team Providers Care Yard Goods Salesperson Name Role Phone Hany Mckeon MD Primary [...] bedtime. Active fluticasone propionate (FLONASE) 50 mcg/spray [place], Suspension nasal inhaler Administer 2 Sprays in each nostril daily. 3 Active levothyroxine 50 mcg tablet Take 50 mcg by mouth daily. 3 Active rosuvastatin (CRESTOR) 10 mg tablet Take 10 mg by mouth daily. Active multivitamin (DAILY-TAINA) tablet Take 1 Tablet by mouth daily. Active meloxicam (MOBIC) 15 mg tablet Take 1 Tablet by mouth daily. 5 Active Active Problems Problem Noted Date Diagnosed Date Elevated MCV 04/19/2023 Encounters Date Type Department Care Team Description 01/27/2025 External Device Data [facility] ABSTRACTION Provider, Abstract 01/21/2025 External Device Data [facility] ABSTRACTION Provider, Abstract 01/20/2025 External Device Data [facility] ABSTRACTION Provider, Abstract [...] on file Legal Sex Male 11:51 AM GINNING OPERATOR Gender Identity Not on file Sexual Orientation Not on file Last Filed Vital Signs Vital Sign Reading Time Taken Comments Blood Pressure 120/76 11/21/2024 8:41 AM CDT Pulse 66 11/21/2024 8:41 AM CDT Temperature 36.2 C (97.1 F) 11/21/2024 8:41 AM CDT Respiratory Rate 15 11/21/2024 8:41 AM CDT Oxygen Saturation 99% 11/21/2024 8:41 AM CDT Inhaled Oxygen Concentration - - Weight 75.8 kg (167 lb 3.2 oz) 11/21/2024 8:41 A M CDT Height 167.6 cm (5' 6) 04/19/2023 10:30 AM GINNING OPERATOR Body Mass Index 26.99 04/19/2023 10:30 AM GINNING OPERATOR Plan of Treatment Health Maintenance Due Date Last Done Comments Pre-Diabetes and Diabetes Screening 1965 DTAP/TDAP/TD VACCINES (1 - Tdap) 08/07/1986 HEPATITIS B VACCINES (1 of 3 - 19+ 3-dose series) 07/24 COLORECTAL SCREENING 08/07/2012 Colorectal Cancer Screening 08/07/2012 FIT-DNA Q 3 years 08/07/2012 FIT/FOBT Q 1 year 08/07/2012 Flex Sig/CT Colonography Q 5 years 08/07/2012 ZOSTER VACCINE (1 of 2) 08/07/2017 INFLUENZA VACCINE (#1) [address] [place] [address] MEDICAID Care Teams Yard Goods Salesperson Relationship Specialty Start Date End Date Hany Mckeon MD PCP - General Internal Medicine 04/19/23
== END 2025-03-23 09:00 | disposition home or self-care (01) ==
PROVIDERS: PCP Internal Medicine; Visit Provider Orthopaedic Surgery
DX: M19.012 Primary osteoarthritis, left shoulder (principal)
CPT/HCPCS: 73221